=== PATIENT | male | born 1970 | race Caucasian/White ===

== ENCOUNTER 2022-06-06 09:22 | Inpatient (IN) | payer MEDICAID, SELFPAY ==
[2022-06-06] VITALS (66 sets, daily range): BP systolic 142–210; BP diastolic 90–160; PULSE 67–121; RESP 6–30; TEMP 36.6; O2SAT 91–100; BMI 25.7
--- NOTE | 2022-06-06 09:34 | ECG_ITS ---
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 Measurements Intervals [place] Rate: 91 P: 46 IN: 137 QRS: -9 QRSD: 100 T: 48 QT: 362 QTc: 446 Interpretive Statements SINUS RHYTHM SEPTAL MYOCARDIAL INFARCTION , OF INDETERMINATE AGE [40+ ms Q WAVE IN V1/V2] No previous ECG available for comparison Electronically Signed On 06-06-2022 13:06:41 CDT by Matt Valderrama M.D. [email or web address]
--- NOTE | 2022-06-06 09:34 | W.ED.NEUROSD ---
HPI - Neuro Symptoms/Deficit General: Chief Complaint: Neuro Symptoms/Deficit Stated Complaint: stroke like symptoms Time Seen by Provider: 06/06/22 09:39 History of Present Illness: 51-year-old right-handed male presents emergency room with left-sided facial droop left arm weakness and ataxia with a left arm drift. Symptoms began last night at around 10:00. No chest pain or discomfort. No previous history of CVA. No visual difficulty is having some difficulty with word finding and pronunciation. His initial NIH score is 6 he is not on any anticoagulants he is well outside the window for tPA. Onset (ago): hour(s) (11) Time: :22 Last Observed Normal: 22:00 Timing confirmed by: family member Location: speech, left face, dysarthria, left arm and ataxia Severity: moderate Quality: weak Relieving factors: none Exacerbating factors: none Associated symptoms: Deny chest pain, cough, diaphoresis, fevers/chills, headache(s), anorexia, malaise, nausea, seizures, short of breath, syncope, tingling, vertigo, vomiting or weakness Treatments Prior to Arrival: none Review of Systems Const: Denies: fever(s), chills, fatigue, malaise or diaphoresis ENMT: Denies: throat pain, ear or mastoid pain, nasal discharge or nasal congestion Card: Denies: chest pain or syncope Resp: Denies: dyspnea, productive cough or non-productive cough GI: Denies: nausea or vomiting : Denies: flank pain, dysuria, urinary frequency or urinary urgency Musc: Denies: neck pain or back pain Skin/Breast: Denies: rash or pruritus Neuro: Denies: headache(s) or vertigo PFSH ED PFSH: Medical History (Updated 06/06/22 @ 13:34 by Steve Storm DO) Depression Family History (Updated 06/06/22 @ 12:46 by Fernandez Retana MD) Other Hypertension Stroke Social History (Updated 06/06/22 @ 12:46 by Fernandez Retana MD) Smoking and tobacco status: current every day smoker Alcohol intake: never Substance/Drug Use: current Substance/Drug use type: Marijuana NIH stroke score NIHSS: Level Of Consciousness - 1a: 0 Level Of Consciousness Questions - 1b: Both Correct Level Of Consciousness Commands - 1c: Both Correct Best Gaze - 2: Normal Visual [place] - 3: No Visual Loss Facial Palsy - 4: Partial Paralysis Motor Arm Right - 5: No Drift Motor Arm Left - 5: Drift Motor Leg Right - 6: No Drift Motor Leg Left - 6: No Drift Limb Ataxia - 7: Present In One Limb Sensory - 8: Normal Best Language - 9: Mild/Moderate Aphasia Dysarthia - 10: Mild/Moderate Dysarthia Extinction And Inattention - 11: 0 Score: Total Score: 6 Course Vital Signs: Vital signs: Vital Signs Temperature 97.9 F 06/06/22 09:30 Pulse Rate 81 06/06/22 11:00 Respiratory Rate 18 06/06/22 11:00 Blood Pressure 210/140 06/06/22 10:18 Pulse Oximetry 98 06/06/22 11:15 Oxygen Delivery Me thod 06/06/22 10:15 MDM - Neuro Symptoms/Deficit Medical Decision Making Patient has symptoms of a left-sided CVA. He has a stroke score of 6 he is outside the window for any tPA treatment based on the timeframe and there is no embolism on the CTA of the head and neck. Discussed with hospitalist will admit for further evaluation and initiation of rehab and secondary prevention. Medical Records I reviewed the patient's medical records. Lab Data I reviewed the patient's lab results. 06/06/22 09:40 06/06/22 09:[address] 06/06/22 09:45 IMPRESSION: 1. No acute intracranial hemorrhage. 2. Indeterminate but suspicious for acute thrombus RIGHT M1 segment. 3. Remote tiny lacunar infarcts in the LEFT [place] radiata and RIGHT basal ganglia. 4. Increased low attenuation in the RIGHT basal ganglia is new since 2012. Could represent an area of early underlying infarct. Notified Steve Storm DO at 06/06/2022 10:14 AM. Head/Neck CTA 06/06/22 09:51 IMPRESSION: 1. Normal carotid arteries. 2. No significant stenosis. No thrombus or emboli identified within the RIGHT M1 segment. 3. Hypoplastic RIGHT A1 segment. 4. Fat-containing anterior mediastinal mass measures 7.0 x 5.5 cm. 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 This mass was also described on a prior MRI from 2010 with only minimal increase in size. At that time further evaluation with chest CT was recommended. This may have been performed at an outside imaging center. Laboratory Results WBC 4.8 10^3/uL (4.0-10.0) 06/06/22 09:40 RBC 5.37 10^6/uL (4.1-5.3) H 06/06/22 09:40 Hgb 15.6 g/dL (11.7-16.6) 06/06/22 09:40 Hct 46.6 % (42.0-52.0) 06/06/22 09:40 MCV 86.8 fl (80-94) 06/06/22 09:40 MCH 29.1 pg (28.0-34.0) 06/06/22 09:40 MCHC 33.5 g/dL (30.0-36.0) 06/06/22 09:40 RDW 13.2 % (12.1-15.1) 06/06/22 09:40 Plt Count 205 10^3/cmm (130-400) 06/06/22 09:40 MPV 10.9 fL (7.4-10.4) H 06/06/22 09:40 Neut % (Auto) 62.3 % 06/06/22 09:40 Lymph % (Auto) 25.1 % 06/06/22 09:40 [place] % (Auto) 9.3 % 06/06/22 09:40 Eos % (Auto) 2.5 % 06/06/22 09:40 Baso % (Auto) 0.6 % 06/06/22 09:40 Neut # (Auto) 3.01 10^3/uL (1.8-7.7) 06/06/22 09:40 Lymph # (Auto) 1.2 10^3/uL (0.8-4.8) 06/06/22 09:40 [place] # (Auto) 0.5 10^3/uL (0.2-0.9) 06/06/22 09:40 Eos # (Auto) 0.1 10^3/uL (0.0-0.8) 06/06/22 09:40 Baso # (Auto) 0.0 10^3/uL (0.0-0.1) 06/06/22 09:40 Nucleated RBC % (auto) 0 % 06/06/22 09:40 Nucleated RBCs # 0.0 /100WBC 06/06/22 09:40 PT 12.20 SECONDS (12.1-14.9) 06/06/22 09:40 INR 0.88 (0.8-1.2) 06/06/22 09:40 APTT 33.2 SECONDS (23.9-36.7) 06/06/22 09:40 Sodium 133 mmol/L (136-145) L 06/06/22 09:40 Potassium 3.9 mmol/L (3.5-5.1) 06/06/22 09:40 Chloride 99 mmol/L (98-107) 06/06/22 09:40 Carbon Dioxide 27 mmol/L (22-29) 06/06/22 09:40 Anion Gap 10.9 (5-19) 06/06/22 09:40 BUN 12 mg/dL (6-20) 06/06/22 09:40 Creatinine 1.0 mg/dL (0.7-1.2) 06/06/22 09:40 GFR Calculation 78.2 mL/min (90-130) L 06/06/22 09:40 Glucose 87 mg/dL (65-115) 06/06/22 09:40 Calculated Osmolality 275 mOsm/kg (285-295) L 06/06/22 09:40 Calcium 8.8 mg/dL (8.5-10.5) 06/06/22 09:40 Total Bilirubin 0.3 mg/dL (0.15-1.2) 06/06/22 09:40 AST 18 U/L (0-40) 06/06/22 09:40 ALT 14 U/L (0-41) 06/06/22 09:40 Alkaline Phosphatase 115 U/L (40-130) 06/06/22 09:40 Troponin T Gen 5 ng/L 23 ng/L (0-15) H 06/06/22 09:36 Total Protein 7.7 g/dL (6.6-8.7) 06/06/22 09:40 Albumin 4.6 g/dL (3.5-5.2) 06/06/22 09:40 Globulin 3.1 g/dL (1.3-4.6) 06/06/22 09:40 TSH 4.78 uIU/mL (0.27-4.20) H 06/06/22 09:36 Urine Color Light yellow (Yellow) 06/06/22 10:29 Urine Appearance Clear (CLEAR) 06/06/22 10:29 Urine pH 7 (5-7) 06/06/22 10:29 Ur Specific [place] 1.005 (1.005-1.030) 06/06/22 10:29 Urine Protein Neg (Negative) 06/06/22 10:29 Urine Glucose (UA) Norm (Normal) 06/06/22 10:29 Urine Ketones Negative (Negative) 06/06/22 10:29 Urine Blood Neg (Negative) 06/06/22 10:29 Urine Nitrate Negative (Negative) 06/06/22 10:29 Urine Bilirubin Neg (Negative) 06/06/22 10:29 Urine Urobilinogen Neg mg/dL (Negative) 06/06/22 10:29 Ur Leukocyte Esterase Negative (Negative) 06/06/22 10:29 Urine Opiates Screen Negative ng/mL (Negative) 06/06/22 10:29 Ur Barbiturates Screen Negative ng/mL (Negative) 06/06/22 10:29 Ur Phencyclidine Scrn Negative ng/mL (Negative) 06/06/22 10:29 Ur Amphetamines Screen Negative ng/mL (Negative) 06/06/22 10:29 U Benzodiazepines Scrn Negative ng/mL (Negative) 06/06/22 10:29 Urine Cocaine Screen Negative ng/mL (Negative) 06/06/22 10:29 U Marijuana (THC) Screen Positive ng/mL (Negative) H 06/06/22 10:29 Discharge Plan Discharge Patient Disposition: Admitted As Inpatient Admit Provider: Fernandez Retana Clinical Impression: Acute CVA (cerebrovascular accident), HTN (hypertension) Condition: Stable Coding Level of Care Code ED Affiliate Marketing Manager for Mayte Lima
--- NOTE | 2022-06-06 09:45 | CT_ITS ---
WS: [id number] CT HEAD NONCONTRAST HISTORY: Symptoms of acute stroke, LEFT facial droop TECHNIQUE: Contiguous axial imaging performed through the brain in 2.5 mm imaging. Bone and soft tiss ue windows. Sagittal and coronal reformats reviewed. All CT scans at [facility] use at least one of these dose optimization techniques: automated exposure control; mA and/or kV adjustment per pa tient size (includes targeted exams where dose is matched to clinical indication); or iterative recon struction. DLP: 1124.34 mGy-cm. COMPARISON: 12/21/2012 No acute intracranial hemorrhage, midline shift or mass effect. No significant atrophy. Small vessel ischemic disease. Prior lacunar infarct LEFT [place] radiata. Tin y lacunar infarct in the RIGHT basal ganglia. Increased amount of low attenuation in the RIGHT basal ganglia could represent a subacute infarct. This is new since the prior study. Ventricles: Normal size with no hydrocephalus. Barium slight increased density in the RIGHT M1 segment. This is asymmetric to the LEFT MCA. Paranasal sinuses: As visualized are clear. Mastoid air cells: Well pneumatized. Calvarium and scalp: Skull is intact with no soft tissue edema or swelling. CT/CT head thrombolytic 78585 IMPRESSION: 1. No acute intracranial hemorrhage. 2. Indeterminate but suspicious for acute thrombus RIGHT M1 segment. 3. Remote tiny lacunar infarcts in the LEFT [place] radiata and RIGHT basal johann glia. 4. Increased low attenuation in the RIGHT basal ganglia is new since 2012. Cou ld represent an area of early underlying infarct. Notified Steve Storm DO at 06/06/2022 10:14 AM.
--- NOTE | 2022-06-06 09:47 | ED_ITS ---
HPI - Neuro Symptoms/Deficit General: Chief Complaint: Neuro Symptoms/Deficit Stated Complaint: stroke like symptoms Time Seen by Provider: 06/06/22 09:39 Source: patient and family Mode of arrival: ambulatory History of Present Illness: 51-year-old male presents emergency room states he went to bed last around 10:00 shortly after that began having some left-sided weakness and numbness. No history of stroke he is not on any anticoagulants. On presentation here he has left-sided facial paralysis weakness and ataxia of the left arm some difficulty with speech finding and fusion. No chest pain or shortness of breath. Onset (ago): hour(s) (11) Time: 09:22 Last Observed Normal: 10:00 Timing confirmed by: family member Location: left face and left arm History of same: No Severity: moderate Quality: weak Relieving factors: none Exacerbating factors: none On Anticoagulants: No Associated symptoms: Reports weakness; Deny chest pain, cough, diaphoresis, fevers/chills, headache(s), anorexia, malaise, nausea, seizures, short of breath, syncope, tingling, vertigo or vomiting Treatments Prior to Arrival: none Review of Systems Const: Denies: fever(s), chills, malaise or diaphoresis ENMT: Denies: throat pain, ear or mastoid pain, nasal discharge or nasal con gestion Card: Denies: chest pain or syncope Resp: Denies: dyspnea, productive cough or non-productive cough GI: Denies: abdominal pain, nausea or vomiting : Denies: flank pain, dysuria, urinary frequency or urinary urgency Musc: Denies: neck pain or back pain Skin/Breast: Denies: rash or pruritus Neuro: Denies: headache(s) or vertigo PFSH ED 2 PFSH: Medical History (Updated 06/06/22 @ 13:56 by Fernandez Retana MD) Depression Family History (Updated 06/06/22 @ 12:46 by Fernandez Retana MD) Other Hypertension Stroke Social History (Updated 06/06/22 @ 12:46 by Fernandez Retana MD) Smoking and tobacco status: current every day smoker Alcohol intake: never Substance/Drug Use: current Substance/Drug use type: Marijuana NIH stroke score NIHSS: Level Of Consciousness - 1a: 0 Level Of Consciousness Questions - 1b: Both Correct Level Of Consciousness Commands - 1c: Both Correct Best Gaze - 2: Normal Visual Castellon - 3: No Visual Loss Facial Palsy - 4: Partial Paralysis Motor Arm Right - 5: No Drift Motor Arm Left - 5: Drift Motor Leg Right - 6: No Drift Motor Leg Left - 6: No Drift Limb Ataxia - 7: Present In One Limb Sensory - 8: Normal Best Language - 9: Mild/Moderate Aphasia Dysarthia - 10: Mild/Moderate Dysarthia Extinction And Inattention - 11: 0 Score: Total Score: 6 Physical Exam Const: GENERAL APPEARANCE: cooperative and comfortable ORIENTATION/CONSCIOUSNESS: Yes awake, Yes oriented to person, Yes oriented to place and Yes oriented to time HENMT: COMMON NORMALS: normocephalic, atraumatic and hearing grossly normal bilaterally HEAD & SCALP: normocephalic and atraumatic Resp: COMMON NORMALS: normal respiratory effort, No retractions, No use of accessory muscles and clear to auscultation bilaterally AUSCULTATION: clear to auscultation bilaterally Cardio: COMMON NORMALS: regular rate, regular rhythm and No murmurs present (Cardio) RATE: regular rate RHYTHM: regular rhythm GI: COMMON NORMALS: Soft to palpation and No hepatosplenomegaly present AUSCULTATION: Yes normoactive bowel sounds PALPATION: Yes Soft to palpation, No Tenderness to palpation present (GI), No Guarding due to palpation present (GI) and Yes No hepatosplenomegaly present Extremity: COMMON NORMALS: normal to inspection, capillary refill normal, no clubbing, cyanosis or edema, no calf tenderness and no pedal edema Neuro: SENSORIUM/ORIENTATION: Yes oriented to person, Yes oriented to place and Yes oriented to time Skin: COMMON NORMALS: no rashes or lesions noted GENERAL SKIN EXAM: no rashes or lesions noted Course Vital Signs: Vital signs: Vital Signs Temperature 97.9 F 06/06/22 09:30 Pulse Rate 74 06/06/22 13:45 Respiratory Rate 6 L 06/06/22 13:45 Blood Pressure 208/160 06/06/22 13:57 Pulse Oximetry 99 06/06/22 13:45 Oxygen Delivery Me thod 06/06/22 13:40 MDM - Neuro Symptoms/Deficit Medical Decision Making Patient presents with left-sided weakness is a stroke score of 6 with dysarthria aphasia numbness tingling and weakness in the left side as well as left-sided facial paralysis. CTA of the head and neck does not show any acute embolism. He is outside the window for tPA does not qualify for an embolectomy discussed the hospitalist and with the neurologist will admit orders are written. Given labetalol for blood pressure. Medical Records I reviewed the patient's medical records. Lab Data I reviewed the patient's lab results. 06/06/22 09:40 06/06/22 09:[address] 06/06/22 09:45 IMPRESSION: 1. No acute intracranial hemorrhage. 2. Indeterminate but suspicious for acute thrombus RIGHT M1 segment. 3. Remote tiny lacunar infarcts in the LEFT [place] radiata and RIGHT basal ganglia. 4. Increased low attenuation in the RIGHT basal ganglia is new since 2012. Could represent an area of early underlying infarct. Notified Steve Storm DO at 06/06/2022 10:14 AM. Head/Neck CTA 06/06/22 09:51 IMPRESSION: 1. Normal carotid arteries. 2. No significant stenosis. No thrombus or emboli identified within the RIGHT M1 segment. 3. Hypoplastic RIGHT A1 segment. 4. Fat-containing anterior mediastinal mass measures 7.0 x 5.5 cm. 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 This mass was also described on a prior MRI from 2010 with only minimal increase in size. At that time further evaluation with chest CT was recommended. This may have been performed at an outside imaging center. Laboratory Results WBC 4.8 10^3/uL (4.0-10.0) 06/06/22 09:40 RBC 5.37 10^6/uL (4.1-5.3) H 06/06/22 09:40 Hgb 15.6 g/dL (11.7-16.6) 06/06/22 09:40 Hct 46.6 % (42.0-52.0) 06/06/22 09:40 MCV 86.8 fl (80-94) 06/06/22 09:40 MCH 29.1 pg (28.0-34.0) 06/06/22 09:40 MCHC 33.5 g/dL (30.0-36.0) 06/06/22 09:40 RDW 13.2 % (12.1-15.1) 06/06/22 09:40 Plt Count 205 10^3/cmm (130-400) 06/06/22 09:40 MPV 10.9 fL (7.4-10.4) H 06/06/22 09:40 Neut % (Auto) 62.3 % 06/06/22 09:40 Lymph % (Auto) 25.1 % 06/06/22 09:40 [place] % (Auto) 9.3 % 06/06/22 09:40 Eos % (Auto) 2.5 % 06/06/22 09:40 Baso % (Auto) 0.6 % 06/06/22 09:40 Neut # (Auto) 3.01 10^3/uL (1.8-7.7) 06/06/22 09:40 Lymph # (Auto) 1.2 10^3/uL (0.8-4.8) 06/06/22 09:40 [place] # (Auto) 0.5 10^3/uL (0.2-0.9) 06/06/22 09:40 Eos # (Auto) 0.1 10^3/uL (0.0-0.8) 06/06/22 09:40 Baso # (Auto) 0.0 10^3/uL (0.0-0.1) 06/06/22 09:40 Nucleated RBC % (auto) 0 % 06/06/22 09:40 Nucleated RBCs # 0.0 /100WBC 06/06/22 09:40 PT 12.20 SECONDS (12.1-14.9) 06/06/22 09:40 INR 0.88 (0.8-1.2) 06/06/22 09:40 APTT 33.2 SECONDS (23.9-36.7) 06/06/22 09:40 Sodium 133 mmol/L (136-145) L 06/06/22 09:40 Potassium 3.9 mmol/L (3.5-5.1) 06/06/22 09:40 Chloride 99 mmol/L (98-107) 06/06/22 09:40 Carbon Dioxide 27 mmol/L (22-29) 06/06/22 09:40 Anion Gap 10.9 (5-19) 06/06/22 09:40 BUN 12 mg/dL (6-20) 06/06/22 09:40 Creatinine 1.0 mg/dL (0.7-1.2) 06/06/22 09:40 GFR Calculation 78.2 mL/min (90-130) L 06/06/22 09:40 Glucose 87 mg/dL (65-115) 06/06/22 09:40 Calculated Osmolality 275 mOsm/kg (285-295) L 06/06/22 09:40 Calcium 8.8 mg/dL (8.5-10.5) 06/06/22 09:40 Total Bilirubin 0.3 mg/dL (0.15-1.2) 06/06/22 09:40 AST 18 U/L (0-40) 06/06/22 09:40 ALT 14 U/L (0-41) 06/06/22 09:40 Alkaline Phosphatase 115 U/L (40-130) 06/06/22 09:40 Troponin T Gen 5 ng/L 23 ng/L (0-15) H 06/06/22 09:36 Total Protein 7.7 g/dL (6.6-8.7) 06/06/22 09:40 Albumin 4.6 g/dL (3.5-5.2) 06/06/22 09:40 Globulin 3.1 g/dL (1.3-4.6) 06/06/22 09:40 TSH 4.78 uIU/mL (0.27-4.20) H 06/06/22 09:36 Urine Color Light yellow (Yellow) 06/06/22 10:29 Urine Appearance Clear (CLEAR) 06/06/22 10:29 Urine pH 7 (5-7) 06/06/22 10:29 Ur Specific [place] 1.005 (1.005-1.030) 06/06/22 10:29 Urine Protein Neg (Negative) 06/06/22 10:29 Urine Glucose (UA) Norm (Normal) 06/06/22 10:29 Urine Ketones Negative (Negative) 06/06/22 10:29 Urine Blood Neg (Negative) 06/06/22 10:29 Urine Nitrate Negative (Negative) 06/06/22 10:29 Urine Bilirubin Neg (Negative) 06/06/22 10:29 Urine Urobilinogen Neg mg/dL (Negative) 06/06/22 10:29 Ur Leukocyte Esterase Negative (Negative) 06/06/22 10:29 Urine Opiates Screen Negative ng/mL (Negative) 06/06/22 10:29 Ur Barbiturates Screen Negative ng/mL (Negative) 06/06/22 10:29 Ur Phencyclidine Scrn Negative ng/mL (Negative) 06/06/22 10:29 Ur Amphetamines Screen Negative ng/mL (Negative) 06/06/22 10:29 U Benzodiazepines Scrn Negative ng/mL (Negative) 06/06/22 10:29 Urine Cocaine Screen Negative ng/mL (Negative) 06/06/22 10:29 U Marijuana (THC) Screen Positive ng/mL (Negative) H 06/06/22 10:29 Discharge Plan Discharge Patient Disposition: Admitted As Inpatient Admit Provider: Fernandez Retana Clinical Impression: Acute CVA (cerebrovascular accident), HTN (hypertension) Condition: Stable Coding Level of Care Code ED Education Rn for Mayte Lima
--- NOTE | 2022-06-06 09:51 | CT_ITS ---
WS: [id number] CT ANGIOGRAM CEREBRAL AND CAROTID ARTERIES HISTORY: acute CVA TECHNIQUE: CT angiogram is performed of the carotid and cerebral arteries. During arterial injection imaging is obtained from the skull vertex to the aortic arch in 1.25 mm imaging. Coronal and sagittal reformats are submitted. Additional multi planar reformats of the carotid and cerebral arteries are submitted, MIP imaging also reviewed. NASCET criteria utilized. All CT scans at [facility] e at least one of these dose optimization techniques: automated exposure control; mA and/or kV adjust ment per patient size (includes targeted exams where dose is matched to clinical indication); or iter ative reconstruction. CONTRAST: Omnipaque 350; 100 mL IV. DLP: 556.54 mGy.cm COMPARISON: None available. Carotid Angiogram: Right carotid: Common carotid artery: Arises normally from the innominate artery. No significant plaque or stenosis. Internal carotid artery: No plaque or stenosis. External carotid artery: Patent. Left carotid: Common carotid artery: Arises normally from the aorta. No significant plaque or stenosis. Internal carotid artery: No plaque or stenosis. External carotid artery: Patent. Right vertebral artery: Unremarkable. Left vertebral artery: Unremarkable. Arises normally from the subclavian artery. Subclavian arteries: No stenosis or significant abnormality. Upper thorax: There is a large anterior mediastinal mass containing peripheral calcification versus l obulated enhancement. Mass measures 7.0 x 5.5 cm causing very slight mass effect on the LEFT subclavi an vein. Mass abuts but does not displace the aortic arch. Thyroid gland: Subcentimeter RIGHT thyroid nodule. Osseous structures: Mild cervical spondylosis. CEREBRAL ANGIOGRAM: Intracranial vertebral arteries: Normal with no significant atherosclerosis. Basilar artery: No significant stenosis or occlusion. No aneurysm. Intracranial Internal carotid arteries: Demonstrates no significant stenosis or plaque. Middle cerebral arteries: No filling defects are noted within the RIGHT M1 segment. Anterior cerebral arteries and ACOM: Very small hypoplastic RIGHT A1 segment. Posterior cerebral arteries and PCOM's: Normal. Small caliber LEFT transverse sinus with arachnoid granulation. Mastoid air cells: Normal. Paranasal sinuses: Normal. Calvarium: Normal. CT/CT angio headneck* [id number] IMPRESSION: 1. Normal carotid arteries. 2. No significant stenosis. No thrombus or emboli identified within the RIGHT M1 segment. 3. Hypoplastic RIGHT A1 segment. 4. Fat-containing anterior mediastinal mass measures 7.0 x 5.5 cm. Most consis tent with a germ cell tumor/teratoma. This mass was also described on a prior M RI from 2010 with only minimal increase in size. At that time further evaluatio n with chest CT was recommended. This may have been performed at an outside [facility] center.
[2022-06-06 09:59] LABS: Basophils % 0.6 %; Eosinophils # 0.1 10^3/uL (0.0-0.8); Eosinophils % 2.5 %; Hematocrit 46.6 % (42.0-52.0); Hemoglobin 15.6 g/dL (11.7-16.6); Lymphocytes # 1.2 10^3/uL (0.8-4.8); Lymphocytes % 25.1 %; Mean Corpuscular HGB Conc 33.5 g/dL (30.0-36.0); Mean Corpuscular Hemoglobin 29.1 pg (28.0-34.0); Mean Corpuscular Volume 86.8 fl (80-94); Mean Platelet Volume 10.9 fL (7.4-10.4); Monocytes # 0.5 10^3/uL (0.2-0.9); Monocytes % 9.3 %; Neutrophils # 3.01 10^3/uL (1.8-7.7); Neutrophils % 62.3 %; Nucleated Red Blood Cells % 0 %; Platelet Count 205 10^3/cmm (130-400); Red Blood Count 5.37 10^6/uL (4.1-5.3); Red Cell Distribution Width 13.2 % (12.1-15.1); White Blood Count 4.8 10^3/uL (4.0-10.0)
[2022-06-06] MEDS: iohexol 350 mg/mL 500 mL Btl (per mL) IV (10:05)
[2022-06-06 10:14] LABS: INR 0.88 (0.8-1.2)
[2022-06-06 10:15] LABS: Alanine Aminotransferase 14 U/L (0-41); Albumin Level 4.6 g/dL (3.5-5.2); Alkaline Phosphatase 115 U/L (40-130); Anion Gap 10.9 (5-19); Aspartate Amino Transferase 18 U/L (0-40); Blood Urea Nitrogen 12 mg/dL (6-20); Calcium 8.8 mg/dL (8.5-10.5); Carbon Dioxide 27 mmol/L (22-29); Chloride 99 mmol/L (98-107); Globulin 3.1 g/dL (1.3-4.6); Glomerular Filtration Rate 78.2 mL/min (90-130); Glucose 87 mg/dL (65-115); Osmolality Calculated 275 mOsm/kg (285-295); Partial Thromboplastin Time 33.2 SECONDS (23.9-36.7); Potassium 3.9 mmol/L (3.5-5.1); Sodium 133 mmol/L (136-145); Total Bilirubin 0.3 mg/dL (0.15-1.2); Total Protein 7.7 g/dL (6.6-8.7)
[2022-06-06 10:32] LABS: Add Urine Microscopic? NO; Charge for UA Resulting for Rev
[2022-06-06 10:53] LABS: Bilirubin Urine Neg (Negative); Blood Urine Neg (Negative); Glucose Urine UA Norm (Normal); Ketones Urine Negative (Negative); Leukocyte Esterase Urine Negative (Negative); Nitrate Urine Negative (Negative); Protein Urine Neg (Negative); Specific Gravity, Urine 1.005 (1.005-1.030); Urine Appearance Clear (CLEAR); Urine Color Light yellow (Yellow); Urobilinogen Urine Neg (Negative); pH Urine 7 (5-7)
[2022-06-06 11:01] LABS: Amphetamines Screen Urine Negative (Negative); Barbiturates Screen Urine Negative (Negative); Benzodiazepines Screen Urine Negative (Negative); Cocaine Screen Urine Negative (Negative); Opiate Screen Urine Negative (Negative); PCP Screen Urine Negative (Negative); THC Screen Urine Positive (Negative)
[2022-06-06] MEDS: labetalol 5 mg/mL SDV 20mL 10 MG IVP (11:12)
--- NOTE | 2022-06-06 11:50 | PM.HP ---
Providers/Chief Complaint Admitting Physician: Fernandez Retana MD Chief Complaint: stroke like symptoms History of Present Illness Vik Jones is a 51 year old male with no prior history of CVA who was brought into the emergency department with left-sided weakness and left facial droop. He reports he was normal around 10 PM last night when he tried to go to sleep. He got up around 2 or 230, and deficit was noted at that time. He denied any headache. He has had some difficulty with ambulation secondary to weakness. He feels like he has some impairment in swallowing. He has never had symptoms like this before. He states he gets nervous/anxious fairly easily and has to move quite a bit. He feels like he has had some shortness of breath, chest heaviness lately that he attributes to allergies. He denies any nausea, vomiting. No recent fever. Reports he smokes a tremendous amount. He would like a nicotine patch. Stroke scale of 6 in the emergency department. While awaiting a room on second floor with telemetry, a short nonsustained run of ventricular tachycardia was noted. I have ordered a magnesium level. I rechecked to make sure his potassium level was normal on admission which it was. Await echocardiogram. Start low-dose beta-catia. Admission deferred to second cardiac stepdown. Review of Systems General: Reports: 10 or more systems reviewed and unremarkable except in HPI and below Const: Denies: fever(s), chills, fatigue or malaise ENMT: Denies: throat pain Card: Denies: chest pain Resp: Reports: dyspnea; Denies: productive cough or non-productive cough Neuro: Reports: numbness in extremities, weakness in extremities and difficulty walking Psych: Reports: depression Medications/Allergies Home Medications Medication Instructions Recorded Confirmed Last Taken Type No Known Home Medications 06/06/22 06/06/22 Unknown History PFSH Acute PFSH: Medical History (Updated 06/06/22 @ 13:56 by Fernandez Retana MD) Depression Family History (Updated 06/06/22 @ 12:46 by Fernandez Retana MD) Other Hypertension Stroke Social History (Updated 06/06/22 @ 12:46 by Fernandez Retana MD) Smoking and tobacco status: current every day smoker Alcohol intake: never Substance/Drug Use: current Substance/Drug use type: Marijuana Vitals/I&O/Wt Last Vital Signs Temp 97.9 F 06/06/22 09:30 Pulse 81 06/06/22 11:00 Resp 18 06/06/22 11:00 BP 210/140 06/06/22 10:18 Pulse Ox 98 06/06/22 11:15 O2 Del Method 06/06/22 10:15 Weight last 48 hrs Weight 90.718 kg Physical Exam Narrative: General exam is a white male, somewhat nervous appearing, in no distress HEENT: Atraumatic and normocephalic. Pupils equally round. Oropharynx clear Neck is supple no lymphadenopathy thyromegaly Cardiovascular regular rate and rhythm without murmur Lungs clear no wheezing or crackles Abdomen is soft nontender positive bowel sounds exam is deferred Extremities no cyanosis clubbing or edema, cap refill brisk Skin no rash Neuro: Left facial droop, left hemiparesis noted. I agree with NIH stroke scale of 6 as per emergency department documentation. Data 06/06/22 09:40 06/06/22 09:40 Other Labs: EKG demonstrates normal sinus rhythm, borderline left axis deviation, Q waves in V1 and V2 CT head no acute changes CTA head and neck no thrombus, hypoplastic right A1 segment Fat-containing anterior mediastinal mass 7 x 5.5 most consistent with germ cell tumor/teratoma which was noted on prior MRI 2010 and only slight increase in size since that time. PT and PTT are normal Urinalysis negative Urine drug screen positive for marijuana TSH 4.78 Troponin 23 LFTs normal A&P Assessment and plan (1) Acute CVA (cerebrovascular accident): Patient presents with acute CVA Aspirin was ordered by me in the emergency department. Initiate Plavix 75 mg a day and aspirin 81 mg daily. Initiate statin Lipid profile in the morning Telemetry Therapy consultations Diet after bedside swallow or speech therapy evaluation Counseled on stopping smoking TSH was ordered and checked, not significantly elevated CTA of head and neck is already been performed. Check echocardiogram. Permissive hypertension. Will not treat blood pressure aggressively unless over 220/120. After 24 hours, may initiate start of below blood pressure monitoring (2) HTN (hypertension): See above (3) Anxiety: Ativan x1 given in the emergency department (4) Chest pain: Troponins have been ordered. There is slight elevation consistent with type II elevation. Continue monitoring on telemetry Await echocardiogram (5) Non-sustained ventricular tachycardia: Await echocardiogram Stat magnesium level is pending Potassium checked and normal Initiate low-dose beta-catia to reduce irritability, 12.5 mg twice daily (6) Mediastinal mass: Incidental finding Noted to be present since 2010, with slight growth Could be playing a part in patient's described shortness of breath with laying down. Tomorrow plan on CT chest with contrast for further evaluation of mass May need biopsy, further evaluation as outpatient LDH, alpha-fetoprotein, beta-hCG ordered. Plan Tobacco dependency. Nicotine patch will be initiated history of chronic back pain Full code currently SCDs, Lovenox for DVT prophylaxis Attestations Medical Necessity Statement*: Will require greater than 2 midnight stay for evaluation and treatment of CVA Diagnoses Acute CVA (cerebrovascular accident) I63.9 HTN (hypertension) I10 Anxiety F41.9 Chest pain R07.9 Non-sustained ventricular tachycardia I47.29 Mediastinal mass J98.59 Time Spent (min) 57
[2022-06-06] MEDS: LORazepam 2 mg/mL INJ 1 mL 1 MG IVP (11:56)
[2022-06-06] MEDS: aspirin 81 mg Chew Tablet 324 MG PO (11:56)
[2022-06-06 12:29] LABS: Troponin T (5th) Once 23 ng/L (0-15)
[2022-06-06 12:39] LABS: Thyroid Stimulating Hormone 4.78 uIU/mL (0.27-4.20)
--- NOTE | 2022-06-06 13:24 | ECG_ITS ---
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 Measurements Intervals [place] Rate: 79 P: 30 DC: 139 QRS: -25 QRSD: 103 T: 33 QT: 391 QTc: 450 Interpretive Statements SINUS RHYTHM INCOMPLETE RIGHT BUNDLE BRANCH BLOCK [90+ ms QRS DURATION, TERMINAL R IN V1/V2, 40+ ms S IN I/aVL/V4/V5/V6] SEPTAL MYOCARDIAL INFARCTION , OF INDETERMINATE AGE [40+ ms Q WAVE IN V1/V2] Compared to ECG 06/06/2022 09:36:13 Incomplete right bundle-branch block now present Myocardial infarct finding still present Electronically Signed On 06-07-2022 11:56:55 CDT by Matt Valderrama M.D. [email or web address]
[2022-06-06 13:51] LABS: Troponin T (5th) Once 24 ng/L (0-15)
[2022-06-06] MEDS: hyDRALAzine 20 mg/mL INJ 1 mL 10 MG IVP (13:51)
[2022-06-06 13:58] LABS: HCG Tumor Marker 1 mIU/mL (0-3); Tumor Marker Alpha Fetoprotein 2.3 ng/mL (0-8.3)
[2022-06-06 14:09] LABS: Lactate Dehydrogenase 214 U/L (135-225)
--- NOTE | 2022-06-06 14:39 | USCV_ITS ---
Vik Jones Age: 51 Gender: M : 1970 Exam Date: 06/06/2022 15:04 Ordering Phys: Fernandez Retana MD Technologist: Mitch Montague Exam Location: [facility] Indication: cva BP: 178 / 139 HR: 79 Rhythm: Sinus Technical Quality: Adequate MEASUREMENTS (Male / Female) Normal Values 2D ECHO LV Diastolic Diameter PLAX 5.9 cm 4.2 - 5.9 / 3.9 - 5.3 cm LV Systolic Diameter PLAX 5.1 cm IVS Diastolic Thickness 1.0 cm 0.6 - 1.0 / 0.6 - 0.9 cm IVS Systolic Thickness 1.5 cm LVPW Diastolic Thickness 1.2 cm 0.6 - 1.0 / 0.6 - 0.9 cm LVPW Systolic Thickness 1.7 cm LVOT Diameter 2.0 cm LV Ejection Fraction 2D Teich 26.4 % LV Ejection Fraction MOD 2C 46.7 % LV Ejection Fraction 2C AL 49.2 % LA Diameter 3.9 cm Aorta at Sinotubular Diameter 3.0 cm IVC Diameter 1.7 cm M-MODE Aortic Annulus Diameter 4.4 cm LA Ao Ratio MM 1.0 MV E Point Septal Separation 2.7 cm DOPPLER AV Peak Velocity 150.0 cm/s LVOT Peak Velocity 59.0 cm/s AV Area Cont Eq vti 1.6 cm squared AV Area Cont Eq pk 1.3 cm squared MV Area PHT 5.0 cm squared Mitral E to A Ratio 0.8 MV E' Velocity 40.5 cm/s Mitral E to MV E' Ratio 10.0 Mitral E to LV E' Lateral Ratio 7.7 Mitral E to LV E' Septal Ratio 14.4 TR Peak Velocity 111.3 cm/s TR Peak Gradient 5.0 mmHg TV Peak E Velocity 78.0 cm/s Right Atrial Pressure 3.0 mmHg Pulmonary Artery Systolic Pressu 8.0 mmHg RV Acceleration Time 0.1 s FINDINGS Left Ventricle Left ventricle is mildly dilated. LV systolic function is moderately reduced with EF of 35-40%. Moderate global hypokinesis. Grade 1 diastolic dysfunction Right Ventricle Normal in size and function Right Atrium Normal in size Left Atrium Normal in size Mitral Valve Thickened mitral valve. No significant regurgitation Aortic Valve Aortic valve is thickened. No significant stenosis or regurgitation Tricuspid Valve Mild tricuspid regurgitation. Insufficient TR jet to calculate RVSP Pulmonic Valve Not well visualized Pericardium Grossly normal Aorta Normal in size IVC Appears to be normal CONCLUSIONS LV systolic function is moderately reduced with EF of 35-40% Grade 1 diastolic dysfunction No significant valvular heart disease No comparison studies are available Matt Valderrama MD (Electronically Signed) Final Date: 07 June 2022 09:20 S
--- NOTE | 2022-06-06 14:53 | CTR_ITS ---
PROCEDURE INFORMATION: Exam: CTA Chest With Contrast Exam date and time: 06/06/2022 4:49 PM Age: 51 years old Clinical indication: Dyspnea; Additional info: Dyspnea, mediastinal mass TECHNIQUE: Imaging protocol: Computed tomographic angiography of the chest with contrast. 3D rendering (Not supervised by radiologist): MIP and/or 3D reconstructed images were created by the technologist. Radiation optimization: All CT scans at this facility use at least one of these dose optimization techniques: automated exposure control; mA and/or kV adjustment per patient size (includes targeted exams where dose is matched to clinical indication); or iterative reconstruction. Contrast material: OMNI; Contrast volume: 100 ml; Contrast route: INTRAVENOUS (IV); REPORTING DATA: Count of CT and Cardiac NM exams in prior 12 months: This patient has received 2 known CTs and 0 known cardiac nuclear medicine studies in the 12 months prior to the current study. COMPARISON: CT angio headneck* [id number] 06/06/2022 9:58 AM RADIATION DOSE METRICS: Total DLP (mGy-cm): 454.07 FINDINGS: Pulmonary arteries: Pulmonary arteries are normal in size. No filling defects are demonstrated. No evidence of pulmonary embolism. Aorta: The ascending aorta measures 3.8 cm in diameter. No aortic dissection. Thyroid: There is an 8 mm low-density nodule noted in the right lobe of the thyroid gland. No follow-up recommended. Lungs: Mild centrilobular emphysema noted. Areas of ground-glass attenuation noted bilaterally. No consolidative infiltrates. Pleural spaces: No pleural effusion or pneumothorax noted. Heart: Mild cardiomegaly is noted. There is no significant pericardial effusion present. Coronary arteries: Minimal coronary arterial calcifications are noted. Mediastinal space: There is a well-circumscribed anterior mediastinal mass present. The mass measures 6 x 7 x 6 cm. The mass demonstrates a thin soft tissue rim with calcification. The central portion of the mass demonstrates areas of fat density and fluid density. The appearance suggests mediastinal teratoma. Lymph nodes: Mild nonspecific bilateral hilar adenopathy noted. Hilar nodes measure up to 1.6 cm in length. Bones/joints: Degenerative thoracic spine changes are noted. No acute osseous abnormality. Soft tissues: The soft tissues are unremarkable as demonstrated. CT/CT angio chest PE protcl [id number] IMPRESSION: 1. There is a well-circumscribed anterior mediastinal mass present. The mass measures 6 x 7 x 6 cm. 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 Consider surgical consultation. 2. No evidence of pulmonary embolism. 3. Mild cardiomegaly is noted. 4. Areas of ground-glass attenuation noted bilaterally. No consolidative infiltrates. Mild centrilobular emphysema is present. 5. Incidental note made of mild nonspecific bilateral hilar adenopathy. COMMENTS: 1. Consistent with the [employer]'s Incidental Findings Committee white paper (J Am Nikolas Radiol 2015): In patients aged 35 years and older with an incidental thyroid nodule equal to or greater than 1.[address], MRI or extrathyroidal US, further evaluation with dedicated thyroid US is recommended for patients with normal life expectancy and without comorbidities. For smaller nodules without suspicious features, no further evaluation or follow up is recommended. 2. In the absence of a history or active diagnosis of lung cancer, it is recommended that this patient with emphysema be evaluated for enrollment in a low dose CT lung cancer screening program.
[2022-06-06] MEDS: nicotine 21 mg Patch 1 PATCH TRANSDERMA (15:05)
[2022-06-06] MEDS: enoxaparin 40 mg/0.4 mL Syringe SUBCUT (15:06)
--- NOTE | 2022-06-06 16:41 | PC.NURSE ---
off unit to CT with RN. [id number]
--- NOTE | 2022-06-06 17:08 | PC.NURSE ---
back in room. [id number]
[2022-06-06] MEDS: metoprolol tartrate 25 mg Tablet 12.5 MG PO (21:09)
[2022-06-06] MEDS: atorvastatin 40 mg Tablet PO (21:09)
[2022-06-07 03:49] VITALS: BP 172/118; PULSE 89; RESP 24; O2SAT 97
[2022-06-07 04:16] LABS: Basophils % 0.3 %; Eosinophils # 0.1 10^3/uL (0.0-0.8); Eosinophils % 0.9 %; Hematocrit 47.4 % (42.0-52.0); Hemoglobin 16.1 g/dL (11.7-16.6); Mean Corpuscular Hemoglobin 28.9 pg (28.0-34.0); Mean Corpuscular Volume 84.9 fl (80-94); Mean Platelet Volume 10.5 fL (7.4-10.4); Monocytes # 0.5 10^3/uL (0.2-0.9); Monocytes % 7.6 %; Neutrophils # 5.28 10^3/uL (1.8-7.7); Neutrophils % 76.9 %; Nucleated Red Blood Cells % 0 %; Platelet Count 219 10^3/cmm (130-400); Red Blood Count 5.58 10^6/uL (4.1-5.3); Red Cell Distribution Width 13.1 % (12.1-15.1); White Blood Count 6.9 10^3/uL (4.0-10.0)
[2022-06-07 04:29] LABS: Estmated Average Glucose 103; Hemoglobin A1C 5.2 % (4.0-6.0)
[2022-06-07 04:34] LABS: Anion Gap 15.8 (5-19); Blood Urea Nitrogen 9 mg/dL (6-20); Calcium 9.2 mg/dL (8.5-10.5); Carbon Dioxide 23 mmol/L (22-29); Chloride 101 mmol/L (98-107); Glomerular Filtration Rate 88.3 mL/min (90-130); Glucose 104 mg/dL (65-115); Osmolality Calculated 281 mOsm/kg (285-295); Potassium 3.8 mmol/L (3.5-5.1); Sodium 136 mmol/L (136-145)
[2022-06-07 04:40] LABS: Chol HDL Ratio 5.26 mg/dL (1.0-5.00); Cholesterol 179 mg/dL (0-200); HDL Cholesterol 34 mg/dL (60-100); LDL Cholesterol Calculated 109 mg/dL (50-129); LDL HDL Ratio 3.21 RATIO (0.00-3.22); Triglycerides 181 mg/dL (0-150)
--- NOTE | 2022-06-07 05:27 | PC.NURSE ---
0330 Pt states he is done wearing monitor leads and pulse ox. He says hes tired of them and wont wear them any longer. Pt agreed to allow Q4H vital checks.
--- NOTE | 2022-06-07 09:20 | P.PN_ITS ---
Subjective Subjective: No issues overnight other than unable to sleep. Does not feel short of breath this morning. Feels like his weakness on his left side is improved. Able to ambulate with minimal difficulty. Medications: Reviewed: Yes Vitals/I&O/Wt Last Vital Signs Temp 98 F 06/06/22 23:04 Pulse 89 06/07/22 03:49 Resp 24 H 06/07/22 03:49 BP 172/118 06/07/22 03:49 Pulse Ox 97 06/07/22 03:49 O2 Del Method 06/06/22 16:36 06/06/22 06/07/22 06/07/22 22:59 06:59 14:59 Intake Total 480 / 480 Output Total 1800 / 1800 Balance -1800 / -1800 480 / 480 Weight last 48 hrs Weight 90.718 kg Physical Exam Narrative: General exam is a white male, no distress Neck is supple no lymphadenopathy thyromegaly Cardiovascular regular rate and rhythm without murmur Lungs clear no wheezing or crackles Abdomen is soft nontender positive bowel sounds exam demonstrates normal male. No evidence of testicular mass. No hernia. Extremities no cyanosis clubbing or edema, cap refill brisk Skin no rash Neuro: Left facial droop, left hemiparesis noted. Left facial droop is significantly improved as is strength on the left side. Weakness still is present, upper extremity greater than lower extremity. Data 06/07/22 03:44 06/07/22 03:44 Other Labs: CTA of chest was reviewed with the patient. 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 Telemetry patient has only worn part of the night. This demonstrated no significant other arrhythmias. A&P Assessment and plan (1) Acute CVA (cerebrovascular accident): Patient presents with acute CVA Continue Plavix and aspirin Continue statin Encouraged telemetry Appreciate therapy consultations Counseled on stopping smoking TSH was ordered and checked, not significantly elevated CTA of head and neck is already been performed. Permissive hypertension for the first 24 hours. Secondary to low EF, other comorbidities metoprolol has been started and will add low-dose GAVIN inhibitor. (2) HTN (hypertension): See above Continue metoprolol advancing dose to 25 mg twice daily, initiate GAVIN inhibitor (3) Anxiety: Stable currently (4) Chest pain: Troponins have been ordered. There is slight elevation consistent with type II elevation. Continue monitoring on telemetry Echocardiogram demonstrated EF around 35%. Global hypokinesis. We will have cardiology evaluate secondary to low EF, nonsustained ventricular tachycardia in the emergency department (5) Non-sustained ventricular tachycardia: See echo above Potassium and magnesium level was normal No evidence of arrhythmia after initiation of beta-catia Cardiology consultation will be obtained (6) Mediastinal mass: Incidental finding Noted to be present since 2010, with slight growth Could be playing a part in patient's described shortness of breath with laying down. CTA of chest, demonstrates 6 x 7 mediastinal mass with calcification, fluid, f at. May need biopsy, further evaluation as outpatient LDH, alpha-fetoprotein, beta-hCG ordered checked and normal exam normal I have visited with cardiothoracic surgery. Secondary to technical aspects of this case it would be best served by evaluation in [place]. This will be arranged as an outpatient, and patient prefers [facility]. Plan Density. Counseled on abstinence. Nicotine patch ordered. history of chronic back pain Full code currently SCDs, Lovenox for DVT prophylaxis Attestations Medical Necessity Statement*: Needs continued hospitalization pending cardiology evaluation for low EF, nonsustained ventricular tachycardia. Diagnoses Acute CVA (cerebrovascular accident) I63.9 HTN (hypertension) I10 Anxiety F41.9 Chest pain R07.9 Non-sustained ventricular tachycardia I47.29 Mediastinal mass J98.59 Time Spent (min) 42
[2022-06-07 09:41] VITALS: BP 164/106; PULSE 97; RESP 18; O2SAT 95
[2022-06-07] MEDS: metoprolol tartrate 25 mg Tablet PO ×2 (09:42→20:49)
[2022-06-07] MEDS: clopidogrel 75 mg Tablet PO (09:42)
[2022-06-07] MEDS: aspirin 81 mg EC Tablet PO (09:42)
[2022-06-07] MEDS: lisinopril 10 mg Tablet PO (09:42)
[2022-06-07] MEDS: nicotine 21 mg Patch 1 PATCH TRANSDERMA (09:42)
--- NOTE | 2022-06-07 10:14 | PC.CHAP ---
Pastoral Care Encounter/Spiritual Assessment Type of Contact [] Declined mdm developer visit [] Patient/Family/Request visit [] Outpatient visit [] Follow-up visit [] Physician referral [] Code/Alert [x] Routine visit [] Staff referral [] Actively dying [] Patient sleeping [] Family support [] [] Out of room [] Palliative care [] [] Receiving care in room [] Pre-surgical visit [] Trauma [] Long length of stay [] ICU visit [] Other: Relational/Emotional Strength [] Patient feels connected with others/family/visitors/staff [] Distress [] Loneliness/isolation [] Abandonment Spirituality of Patient [] Person of Nora [] Attends Adventism of their [place]ora [] Believes in Prayer [] Reads Bible or Hindu materials [] There are Spiritual issues to be addressed 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 [x] Prayer [] Active listening [] Non-anxious presence [] Spiritual/emotional support [] Crisis/trauma care [] Spiritual counseling [] Bereavement support [] Provided bereavement packet [] Provided Bible/devotional materials [] Provided toy/stuffed animal, coloring book to patient or family member [] Provided Communion [] Anointing/[place] [] Salvation [] Completed spiritual assessment [] Other: Impact on Illness or Injury [] Angry [] Fearful [] Anxious [] Often cries [] Exhaustion [] Unable to work [] Unable to attend yarsanism [] Unable to walk/stand [] Unable to read [] Unable to drive [] Unable to eat/drink [] Unable to sleep [] Unable to be with family [] Patient intubated [] Other: Summary Time spent with patient
[2022-06-07 11:34] VITALS: BP 147/103; PULSE 75; RESP 18; TEMP 36.6; O2SAT 94
--- NOTE | 2022-06-07 13:18 | P.CONIM_ITS ---
Providers/Reason For Consult Consulting Physician/Specialty*: JADEN Swanson MD/cardiology Reason for Consult*: Patient with cardiomyopathy/CVA Requesting Physician: Dr Retana Attending Physician: Fernandez Retana MD History of Present Illness History of Present Illness Vik Jones is a 51 year old male who is admitted to hospital with CVA. He was found to have an episode of wide-complex tachycardia on the monitor. His echocardiogram revealed an LV ejection fraction of 35 to 40%. Cardiology consult is requested for further cardiac evaluation recommendations. This patient apparently has not been to a physician for many years. He has no documented history for high blood pressure, diabetes or dyslipidemia. No history for any cardiac illness. He is admitted to hospital with features of CVA - presented with slurred speech, numbness of the left upper and lower ext remity. His symptoms are slowly subsiding at this time. Apparently he had an episode of wide-complex tachycardia of more than 30 beats in the emergency room. He spontaneously converted to sinus rhythm. His echocardiogram revealed LV ejection fraction of 35 to 40%. He was found to have diffuse hypokinesia of the left ventricle. He was found to have accelerated hypertension with a systolic blood pressure in the 200 range. Apparently he never been treated for high blood pressure. He has a history of smoking abuse, at least a pack a day for the last 25 years. No recent history of any alcohol abuse or any other substance abuse. His maternal grandfather had heart attack in the late 60s. One of his brothers had open heart surgery at the age of 56. Patient never been or have any children. Currently denies any chest pain or shortness of breath. No fever, chills or cough. Review of Systems Narrative: CONSTITUTIONAL: No fever or chills. EYES: No blurring of vision or other visual disturbances lately. ENT: No hoarseness of voice, auditory disturbances or sore throat. CARDIOVASCULAR: As mentioned above. RESPIRATORY: No significant cough. GASTROINTESTINAL: No hematemesis or melena. GENITOURINARY: No dysuria or hematuria. INTEGUMENTARY: No skin rashes or history of skin cancer. NEURO: No transient ischemic attacks or amaurosis. PSYCHIATRIC: No history of psychosis or major depression. HEMATOLOGIC: No bleeding disorders or significant anemia. ENDOCRINE: No history of polyuria or polydipsia. MUSCULOSKELETAL: He has a history of chronic back pain and he is disabled from this. Has not been working for the last 15 years or so. ALLERGY/IMMUNOLOGY: As mentioned above. Medications/Allergies Home Medications Medication Instructions Recorded Confirmed Last Taken Type No Known Home Medications 06/06/22 06/06/22 Unknown History Allergies Allergy/AdvReac Type Severity Reaction Status Date / Time No Known Allergies Allergy Verified 06/06/22 17:42 Current Medications Generic Name Dose Route Start Last Admin Trade Name Carlos PRN Reason Stop Dose Admin Aspirin 81 mg 06/07/22 09:00 06/07/22 09:42 Aspirin 81 Mg Ec Tablet PO 81 mg DAILY REBECA Administration Atorvastatin Calcium 40 mg 06/06/22 21:00 06/06/22 21:09 Atorvastatin 40 Mg Tablet PO 40 mg BEDTIME REBECA Administration Clopidogrel Bisulfate 75 mg 06/07/22 09:00 06/07/22 09:42 Clopidogrel 75 Mg Tablet PO 75 mg DAILY REBECA Administration Enoxaparin Sodium 40 mg 06/06/22 15:30 06/06/22 15:06 Enoxaparin 40 Mg/0.4 Ml Syringe SUBCUT 40 mg Q24H REBECA Administration Lisinopril 10 mg 06/07/22 09:00 06/07/22 09:42 Lisinopril 10 Mg Tablet PO 10 mg DAILY REBECA Administration Metoprolol Tartrate 25 mg 06/07/22 09:00 06/07/22 09:42 Metoprolol Tartrate 25 Mg Tablet PO 25 mg BID@0900,2100 REBECA Administration Nicotine 1 patch 06/06/22 15:00 06/07/22 09:42 Nicotine 21 Mg Patch TRANSDERMA 1 patch DAILY REBECA Administration PFSH Acute PFSH: Medical History Depression Ventricular tachycardia by electrocardiography Family History Other Hypertension Stroke Social History Smoking and tobacco status: current every day smoker Alcohol intake: never Substance/Drug Use: current Substance/Drug use type: Marijuana Vitals/I&O/Wt Last Vital Signs Temp 97.8 F 06/07/22 11:34 Pulse 75 06/07/22 11:34 Resp 18 06/07/22 11:34 BP 147/103 06/07/22 11:34 Pulse Ox 94 06/07/22 11:34 O2 Del Method 06/07/22 09:41 06/06/22 06/07/22 06/07/22 22:59 06:59 14:59 Intake Total 480 / 480 Output Total 1800 / 1800 Balance -1800 / -1800 480 / 480 Weight last 48 hrs Weight 200 lb Physical Exam Narrative: GENERAL: The patient is alert and oriented times three. Not in any acute distress. HEENT: No significant pallor, icterus or lymphadenopathy.Oral cavity: There are no mucous membrane lesions. NECK: Trachea appears to be central. No masses noted. No JVD or thyromegaly appreciated. RESPIRATORY: Chest is symmetrical. No intercostals muscle retraction or any accessory muscle activation. There is no chest wall tenderness. Breath sounds are heard bilaterally. No rales or rhonchi heard. No evidence of any consolidation. BREASTS: Deferred. HEART: The heart sounds are normal. No S3 or S4. No significant murmurs. No pericardial rub ABDOMEN: No vessel pulsations or distention. No tenderness. No organomegaly appreciated. Bowel sounds are normally heard. : Deferred. RECTAL: Deferred. LYMPHATIC: No lymphadenopathy noted in the neck. EXTREMITIES: No edema or cyanosis. No clubbing. MUSCULOSKELETAL: No acute joint deformities or swelling SKIN: There are no significant rashes or ecchymosis NEUROPSYCHIATRIC: Patient has left-sided facial weakness. No significant motor weakness of the upper and lower extremities. Data 06/07/22 03:44 06/07/22 03:44 Other Labs: Laboratory Last Values WBC 6.9 10^3/uL (4.0-10.0) 06/07/22 03:44 RBC 5.58 10^6/uL (4.1-5.3) H 06/07/22 03:44 Hgb 16.1 g/dL (11.7-16.6) 06/07/22 03:44 Hct 47.4 % (42.0-52.0) 06/07/22 03:44 MCV 84.9 fl (80-94) 06/07/22 03:44 MCH 28.9 pg (28.0-34.0) 06/07/22 03:44 MCHC 34.0 g/dL (30.0-36.0) 06/07/22 03:44 RDW 13.1 % (12.1-15.1) 06/07/22 03:44 Plt Count 219 10^3/cmm (130-400) 06/07/22 03:44 MPV 10.5 fL (7.4-10.4) H 06/07/22 03:44 Neut % (Auto) 76.9 % 06/07/22 03:44 Lymph % (Auto) 14.0 % 06/07/22 03:44 [place] % (Auto) 7.6 % 06/07/22 03:44 Eos % (Auto) 0.9 % 06/07/22 03:44 Baso % (Auto) 0.3 % 06/07/22 03:44 Neut # (Auto) 5.28 10^3/uL (1.8-7.7) 06/07/22 03:44 Lymph # (Auto) 1.0 10^3/uL (0.8-4.8) 06/07/22 03:44 [place] # (Auto) 0.5 10^3/uL (0.2-0.9) 06/07/22 03:44 Eos # (Auto) 0.1 10^3/uL (0.0-0.8) 06/07/22 03:44 Baso # (Auto) 0.0 10^3/uL (0.0-0.1) 06/07/22 03:44 Nucleated RBC % (auto) 0 % 06/07/22 03:44 Nucleated RBCs # 0.0 /100WBC 06/07/22 03:44 PT 12.20 SECONDS (12.1-14.9) 06/06/22 09:40 INR 0.88 (0.8-1.2) 06/06/22 09:40 APTT 33.2 SECONDS (23.9-36.7) 06/06/22 09:40 Sodium 136 mmol/L (136-145) 06/07/22 03:44 Potassium 3.8 mmol/L (3.5-5.1) 06/07/22 03:44 Chloride 101 mmol/L (98-107) 06/07/22 03:44 Carbon Dioxide 23 mmol/L (22-29) 06/07/22 03:44 Anion Gap 15.8 (5-19) 06/07/22 03:44 BUN 9 mg/dL (6-20) 06/07/22 03:44 Creatinine 0.9 mg/dL (0.7-1.2) 06/07/22 03:44 GFR Calculation 88.3 mL/min (90-130) L 06/07/22 03:44 Glucose 104 mg/dL (65-115) 06/07/22 03:44 Estimat Average Glucose 103 06/07/22 03:44 Hemoglobin A1c 5.2 % (4.0-6.0) 06/07/22 03:44 Calculated Osmolality 281 mOsm/kg (285-295) L 06/07/22 03:44 Calcium 9.2 mg/dL (8.5-10.5) 06/07/22 03:44 Magnesium 2.0 mg/dL (1.7-2.3) 06/06/22 13:15 Total Bilirubin 0.3 mg/dL (0.15-1.2) 06/06/22 09:40 AST 18 U/L (0-40) 06/06/22 09:40 ALT 14 U/L (0-41) 06/06/22 09:40 Alkaline Phosphatase 115 U/L (40-130) 06/06/22 09:40 Lactate Dehydrogenase 214 U/L (135-225) 06/06/22 13:15 Troponin T Gen 5 ng/L 24 ng/L (0-15) H 06/06/22 13:15 Total Protein 7.7 g/dL (6.6-8.7) 06/06/22 09:40 Albumin 4.6 g/dL (3.5-5.2) 06/06/22 09:40 Globulin 3.1 g/dL (1.3-4.6) 06/06/22 09:40 Triglycerides 181 mg/dL (0-150) H 06/07/22 03:44 Cholesterol 179 mg/dL (0-200) 06/07/22 03:44 LDL Cholesterol, Calc 109 mg/dL (50-129) 06/07/22 03:44 HDL Cholesterol 34 mg/dL (60-100) L 06/07/22 03:44 LDL/HDL Ratio 3.21 RATIO (0.00-3.22) 06/07/22 03:44 Cholesterol/HDL Ratio 5.26 mg/dL (1.0-5.00) H 06/07/22 03:44 Tumor Marker AFP 2.3 ng/mL (0-8.3) 06/06/22 13:15 Tumor Marker HCG 1 mIU/mL (0-3) 06/06/22 13:15 TSH 4.78 uIU/mL (0.27-4.20) H 06/06/22 09:36 Ser , Semi-Qnt Cancelled 06/06/22 13:15 Urine Color Light yellow (Yellow) 06/06/22 10:29 Urine Appearance Clear (CLEAR) 06/06/22 10:29 Urine pH 7 (5-7) 06/06/22 10:29 Ur Specific [place] 1.005 (1.005-1.030) 06/06/22 10:29 Urine Protein Neg (Negative) 06/06/22 10:29 Urine Glucose (UA) Norm (Normal) 06/06/22 10:29 Urine Ketones Negative (Negative) 06/06/22 10:29 Urine Blood Neg (Negative) 06/06/22 10:29 Urine Nitrate Negative (Negative) 06/06/22 10:29 Urine Bilirubin Neg (Negative) 06/06/22 10:29 Urine Urobilinogen Neg mg/dL (Negative) 06/06/22 10:29 Ur Leukocyte Esterase Negative (Negative) 06/06/22 10:29 Urine Opiates Screen Negative ng/mL (Negative) 06/06/22 10:29 Ur Barbiturates Screen Negative ng/mL (Negative) 06/06/22 10:29 Ur Phencyclidine Scrn Negative ng/mL (Negative) 06/06/22 10:29 Ur Amphetamines Screen Negative ng/mL (Negative) 06/06/22 10:29 U Benzodiazepines Scrn Negative ng/mL (Negative) 06/06/22 10:29 Urine Cocaine Screen Negative ng/mL (Negative) 06/06/22 10:29 U Marijuana (THC) Screen Positive ng/mL (Negative) H 06/06/22 10:29 CTA Chest: Radiologist's impression: 1. ? There is a well-circumscribed anterior mediastinal mass present. The mass measures 6 x 7 x 6 cm. 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 Consider surgical consultation. 2. ? No evidence of pulmonary embolism. 3. ? Mild cardiomegaly is noted. 4. ? Areas of ground-glass attenuation noted bilaterally. No consolidative infiltrates. Mild centrilobular emphysema is present. 5. ? Incidental note made of mild nonspecific bilateral hilar adenopathy. A&P Assessment and plan (1) Wide-complex tachycardia: The rhythm appears to be somewhat irregular. Atrial fibrillation with aberrancy is a good possibility. Only rhythm strip is available. In view of the patient's LV dysfunction, it might be appropriate to start him on amiodarone 400 mg p.o. twice daily for 10 days followed by 400 mg daily for 10 days followed by 200 mg daily. He may need to be closely monitored on telemetry. (2) Acute CVA (cerebrovascular accident): Patient is a symptoms are slowly improving. Possibility of an embolic stroke is a consideration. A GWENDOLYN would be appropriate to better evaluate for any cardiac source of embolization. (3) Cardiomyopathy: Etiology is not clear. Apparently the patient never had any chest pain. Hypertensive heart disease or other nonischemic cardiomyopathy also are considerations. Patient may benefit from a Myocardial perfusion imaging to further evaluate for any coronary ischemia. Since that he is asymptomatic, this may be done as an outpatient. (4) HTN (hypertension): The blood pressure is still elevated. However it may be acceptable in view of his CVA. (5) Mediastinal mass: This needs to be further evaluated. (6) Dyslipidemia: May continue on the current medications. Plan We will go ahead and schedule the patient for a GWENDOLYN tomorrow. Based on the results, further recommendations will be made. May be scheduled for Myocardial perfusion imaging as an outpatient. Thank you for the opportunity to evaluate this patient and make these recommendations Coding Level of Care Code 61645 Diagnoses Wide-complex tachycardia R00.0 Acute CVA (cerebrovascular accident) I63.9 Cardiomyopathy I42.9 HTN (hypertension) I10 Mediastinal mass J98.59 Dyslipidemia E78.5
[2022-06-07 16:38] VITALS: BP 125/89; PULSE 85; RESP 17; TEMP 36.7; O2SAT 94
[2022-06-07] MEDS: enoxaparin 40 mg/0.4 mL Syringe SUBCUT (16:45)
[2022-06-07 17:40] VITALS: BP 144/100; PULSE 86
[2022-06-07] MEDS: amiodarone 200 mg Tablet 400 MG PO (17:40)
[2022-06-07 20:00] VITALS: BP 125/90; PULSE 94; RESP 19; TEMP 36.6; O2SAT 93
[2022-06-07] MEDS: trazodone 100 mg Tablet PO (20:49)
[2022-06-07] MEDS: atorvastatin 40 mg Tablet PO (20:49)
[2022-06-08] VITALS (19 sets, daily range): BP systolic 89–145; BP diastolic 62–92; PULSE 64–80; RESP 12–24; TEMP 36.6–36.7; O2SAT 93–100
[2022-06-08 04:19] LABS: Basophils % 0.7 %; Eosinophils # 0.1 10^3/uL (0.0-0.8); Eosinophils % 2.3 %; Hematocrit 45.6 % (42.0-52.0); Lymphocytes # 1.3 10^3/uL (0.8-4.8); Lymphocytes % 29.6 %; Mean Corpuscular HGB Conc 32.9 g/dL (30.0-36.0); Mean Corpuscular Hemoglobin 28.4 pg (28.0-34.0); Mean Corpuscular Volume 86.4 fl (80-94); Mean Platelet Volume 11.3 fL (7.4-10.4); Monocytes # 0.4 10^3/uL (0.2-0.9); Monocytes % 10.1 %; Neutrophils # 2.43 10^3/uL (1.8-7.7); Neutrophils % 57.1 %; Nucleated Red Blood Cells % 0 %; Platelet Count 209 10^3/cmm (130-400); Red Blood Count 5.28 10^6/uL (4.1-5.3); Red Cell Distribution Width 13.3 % (12.1-15.1); White Blood Count 4.3 10^3/uL (4.0-10.0)
[2022-06-08 04:46] LABS: Anion Gap 13.3 (5-19); Blood Urea Nitrogen 14 mg/dL (6-20); Calcium 8.6 mg/dL (8.5-10.5); Carbon Dioxide 24 mmol/L (22-29); Chloride 103 mmol/L (98-107); Glomerular Filtration Rate 57.7 mL/min (90-130); Glucose 108 mg/dL (65-115); Osmolality Calculated 285 mOsm/kg (285-295); Potassium 3.3 mmol/L (3.5-5.1); Sodium 137 mmol/L (136-145)
--- NOTE | 2022-06-08 06:52 | W.PM.OPSUD ---
Surgery/Procedure H&P Update DATE OF PROCEDURE: June 08, 2022 DATE H&P PERFORMED: 06/07/22 H&P UPDATE INFORMATION: I have reviewed H&P completed within last 30 days, I have examined patient prior to procedure and No changes to prior documentation PREOP DIAGNOSIS: CVA/ cardiomyopathy PRIMARY INDICATION FOR PROCEDURE: CVA PLANNED PROCEDURE: Operation Date: 06/08/22 14:00 Proposed Procedures p GWENDOLYN(Not Applicable) - Francisco Swanson MD
--- NOTE | 2022-06-08 06:53 | P.PN_ITS ---
Subjective Subjective: Patient is feeling okay. Neurological symptoms seems to be slowly improving. No new neurological deficits. Vital signs are stable. Denies any fever, chills or cough. Medications: Medication Review Details: Current Medications Acetaminophen (Acetaminophen 325 Mg Tablet) 650 mg PO Q6H PRN PRN Reason: FEVER Amiodarone HCl (Amiodarone 200 Mg Tablet) 400 mg PO BID [facility] Last Admin: 06/07/22 17:40 Dose: 400 mg Aspirin (Aspirin 81 Mg Ec Tablet) 81 mg PO DAILY [facility] Last Admin: 06/07/22 09:42 Dose: 81 mg Atorvastatin Calcium (Atorvastatin 40 Mg Tablet) 40 mg PO BEDTIME [facility] Last Admin: 06/07/22 20:49 Dose: 40 mg Clopidogrel Bisulfate (Clopidogrel 75 Mg Tablet) 75 mg PO DAILY [facility] Last Admin: 06/07/22 09:42 Dose: 75 mg Enoxaparin Sodium (Enoxaparin 40 Mg/0.4 Ml Syringe) 40 mg SUBCUT Q24H [facility] Last Admin: 06/07/22 16:45 Dose: 40 mg Hydralazine HCl (Hydralazine 20 Mg/Ml Inj 1 Ml) 10 mg IVP Q4H PRN PRN Reason: HYPERTENSION Lisinopril (Lisinopril 10 Mg Tablet) 10 mg PO DAILY [facility] Last Admin: 06/07/22 09:42 Dose: 10 mg Lorazepam (Lorazepam 0.5 Mg Tablet) 0.5 mg PO BEDTIME PRN PRN Reason: ANXIETY Metoprolol Tartrate (Metoprolol Tartrate 25 Mg Tablet) 25 mg PO BID@0900,2100 [facility] Last Admin: 06/07/22 20:49 Dose: 25 mg Nicotine (Nicotine 21 Mg Patch) 1 patch TRANSDERMA DAILY [facility] Last Admin: 06/07/22 09:42 Dose: 1 patch Trazodone HCl (Trazodone 100 Mg Tablet) 100 mg PO BEDTIME [facility] Last Admin: 06/07/22 20:49 Dose: 100 mg Vitals/I&O/Wt Last Vital Signs Temp 98.1 F 06/08/22 04:00 Pulse 65 06/08/22 04:00 Resp 21 H 06/08/22 04:00 BP 126/79 06/08/22 04:00 Pulse Ox 95 06/08/22 04:00 O2 Del Method 06/08/22 04:00 06/07/22 06/07/22 06/08/22 14:59 22:59 06:59 Intake Total 720 / 720 100 / 820 Balance 720 / 720 100 / 820 Weight last 48 hrs Weight 200 lb Physical Exam Narrative: GENERAL: The patient is alert and oriented times three. Not in any acute distress. HEENT: No significant pallor, icterus or lymphadenopathy.Oral cavity: There are no mucous membrane lesions. NECK: Trachea appears to be central. No masses noted. No JVD or thyromegaly appreciated. RESPIRATORY: Chest is symmetrical. No intercostals muscle retraction or any accessory muscle activation. There is no chest wall tenderness. Breath sounds are heard bilaterally. No rales or rhonchi heard. No evidence of any consolidation. BREASTS: Deferred. HEART: The heart sounds are normal. No S3 or S4. No significant murmurs. No pericardial rub ABDOMEN: No vessel pulsations or distention. No tenderness. No organomegaly appreciated. Bowel sounds are normally heard. : Deferred. RECTAL: Deferred. LYMPHATIC: No lymphadenopathy noted in the neck. EXTREMITIES: No edema or cyanosis. No clubbing. MUSCULOSKELETAL: No acute joint deformities or swelling SKIN: There are no significant rashes or ecchymosis NEUROPSYCHIATRIC: Left-sided facial weakness persists. Data 06/08/22 02:55 06/08/22 02:55 Other Labs: Laboratory Last Values WBC 4.3 10^3/uL (4.0-10.0) 06/08/22 02:55 RBC 5.28 10^6/uL (4.1-5.3) 06/08/22 02:55 Hgb 15.0 g/dL (11.7-16.6) 06/08/22 02:55 Hct 45.6 % (42.0-52.0) 06/08/22 02:55 MCV 86.4 fl (80-94) 06/08/22 02:55 MCH 28.4 pg (28.0-34.0) 06/08/22 02:55 MCHC 32.9 g/dL (30.0-36.0) 06/08/22 02:55 RDW 13.3 % (12.1-15.1) 06/08/22 02:55 Plt Count 209 10^3/cmm (130-400) 06/08/22 02:55 MPV 11.3 fL (7.4-10.4) H 06/08/22 02:55 Neut % (Auto) 57.1 % 06/08/22 02:55 Lymph % (Auto) 29.6 % 06/08/22 02:55 [place] % (Auto) 10.1 % 06/08/22 02:55 Eos % (Auto) 2.3 % 06/08/22 02:55 Baso % (Auto) 0.7 % 06/08/22 02:55 Neut # (Auto) 2.43 10^3/uL (1.8-7.7) 06/08/22 02:55 Lymph # (Auto) 1.3 10^3/uL (0.8-4.8) 06/08/22 02:55 [place] # (Auto) 0.4 10^3/uL (0.2-0.9) 06/08/22 02:55 Eos # (Auto) 0.1 10^3/uL (0.0-0.8) 06/08/22 02:55 Baso # (Auto) 0.0 10^3/uL (0.0-0.1) 06/08/22 02:55 Nucleated RBC % (auto) 0 % 06/08/22 02:55 Nucleated RBCs # 0.0 /100WBC 06/08/22 02:55 PT 12.20 SECONDS (12.1-14.9) 06/06/22 09:40 INR 0.88 (0.8-1.2) 06/06/22 09:40 APTT 33.2 SECONDS (23.9-36.7) 06/06/22 09:40 Sodium 137 mmol/L (136-145) 06/08/22 02:55 Potassium 3.3 mmol/L (3.5-5.1) L 06/08/22 02:55 Chloride 103 mmol/L (98-107) 06/08/22 02:55 Carbon Dioxide 24 mmol/L (22-29) 06/08/22 02:55 Anion Gap 13.3 (5-19) 06/08/22 02:55 BUN 14 mg/dL (6-20) 06/08/22 02:55 Creatinine 1.3 mg/dL (0.7-1.2) H 06/08/22 02:55 GFR Calculation 57.7 mL/min (90-130) L 06/08/22 02:55 Glucose 108 mg/dL (65-115) 06/08/22 02:55 Estimat Average Glucose 103 06/07/22 03:44 Hemoglobin A1c 5.2 % (4.0-6.0) 06/07/22 03:44 Calculated Osmolality 285 mOsm/kg (285-295) 06/08/22 02:55 Calcium 8.6 mg/dL (8.5-10.5) 06/08/22 02:55 Magnesium 2.0 mg/dL (1.7-2.3) 06/06/22 13:15 Total Bilirubin 0.3 mg/dL (0.15-1.2) 06/06/22 09:40 AST 18 U/L (0-40) 06/06/22 09:40 ALT 14 U/L (0-41) 06/06/22 09:40 Alkaline Phosphatase 115 U/L (40-130) 06/06/22 09:40 Lactate Dehydrogenase 214 U/L (135-225) 06/06/22 13:15 Troponin T Gen 5 ng/L 24 ng/L (0-15) H 06/06/22 13:15 Total Protein 7.7 g/dL (6.6-8.7) 06/06/22 09:40 Albumin 4.6 g/dL (3.5-5.2) 06/06/22 09:40 Globulin 3.1 g/dL (1.3-4.6) 06/06/22 09:40 Triglycerides 181 mg/dL (0-150) H 06/07/22 03:44 Cholesterol 179 mg/dL (0-200) 06/07/22 03:44 LDL Cholesterol, Calc 109 mg/dL (50-129) 06/07/22 03:44 HDL Cholesterol 34 mg/dL (60-100) L 06/07/22 03:44 LDL/HDL Ratio 3.21 RATIO (0.00-3.22) 06/07/22 03:44 Cholesterol/HDL Ratio 5.26 mg/dL (1.0-5.00) H 06/07/22 03:44 Tumor Marker AFP 2.3 ng/mL (0-8.3) 06/06/22 13:15 Tumor Marker HCG 1 mIU/mL (0-3) 06/06/22 13:15 TSH 4.78 uIU/mL (0.27-4.20) H 06/06/22 09:36 Ser , Semi-Qnt Cancelled 06/06/22 13:15 Urine Color Light yellow (Yellow) 06/06/22 10:29 Urine Appearance Clear (CLEAR) 06/06/22 10:29 Urine pH 7 (5-7) 06/06/22 10:29 Ur Specific [place] 1.005 (1.005-1.030) 06/06/22 10:29 Urine Protein Neg (Negative) 06/06/22 10:29 Urine Glucose (UA) Norm (Normal) 06/06/22 10:29 Urine Ketones Negative (Negative) 06/06/22 10:29 Urine Blood Neg (Negative) 06/06/22 10:29 Urine Nitrate Negative (Negative) 06/06/22 10:29 Urine Bilirubin Neg (Negative) 06/06/22 10:29 Urine Urobilinogen Neg mg/dL (Negative) 06/06/22 10:29 Ur Leukocyte Esterase Negative (Negative) 06/06/22 10:29 Urine Opiates Screen Negative ng/mL (Negative) 06/06/22 10:29 Ur Barbiturates Screen Negative ng/mL (Negative) 06/06/22 10:29 Ur Phencyclidine Scrn Negative ng/mL (Negative) 06/06/22 10:29 Ur Amphetamines Screen Negative ng/mL (Negative) 06/06/22 10:29 U Benzodiazepines Scrn Negative ng/mL (Negative) 06/06/22 10:29 Urine Cocaine Screen Negative ng/mL (Negative) 06/06/22 10:29 U Marijuana (THC) Screen Positive ng/mL (Negative) H 06/06/22 10:29 A&P Assessment and plan (1) Wide-complex tachycardia: The rhythm appears to be somewhat irregular. Atrial fibrillation with aberrancy is a good possibility. Only rhythm strip is available. In view of the patie nt's LV dysfunction, it might be appropriate to start him on amiodarone 400 mg p.o. twice daily for 10 days followed by 400 mg daily for 10 days followed by 200 mg daily. He may need to be closely monitored on telemetry. (2) Acute CVA (cerebrovascular accident): Patient is a symptoms are slowly improving. Possibility of an embolic stroke is a consideration. A GWENDOLYN would be appropriate to better evaluate for any cardiac source of embolization. The patient is scheduled for the procedure today. (3) Cardiomyopathy: Etiology is not clear. Apparently the patient never had any chest pain. Hypertensive heart disease or other nonischemic cardiomyopathy also are considerations. Patient may benefit from a Myocardial perfusion imaging to further evaluate for any coronary ischemia. Since that he is asymptomatic, this may be done as an outpatient. (4) HTN (hypertension): currently normotensive. May continue on the current medications. (5) Mediastinal mass: This needs to be further evaluated. (6) Dyslipidemia: May continue on the current medications. Plan Other problems are Mild hypokalemia Acute kidney injury GWENDOLYN today. Based on the results, further recommendations will be made Attestations Medical Necessity Statement*: Patient requires continued hospital stay for close monitoring and further management Coding Level of Care Code 82089 Diagnoses Wide-complex tachycardia R00.0 Acute CVA (cerebrovascular accident) I63.9 Cardiomyopathy I42.9 HTN (hypertension) I10 Mediastinal mass J98.59 Dyslipidemia E78.5
--- NOTE | 2022-06-08 07:05 | P.ANESASSM_ITS ---
Pre-Anesthetic Assessment Height/Weight: Height 1.88 m Weight 90.718 kg Temp Pulse Resp BP Pulse Ox O2 Del Method 98.1 F 65 21 H 126/79 95 06/08/22 04:00 06/08/22 04:00 06/08/22 04:00 06/08/22 04:00 06/08/22 04:00 06/08/22 04:00 Preop Diagnosis: CVA/ cardiomyopathy Operation Date: 06/08/22 14:00 Proposed Procedures p GWENDOLYN(Not Applicable) - Francisco Swanson MD Familial anesthetic complications: none Was Beta John taken within 24 hours: N/A Was Clonidine taken within 24 hours: N/A Last Intake: 23:00 Social Tobacco and No alcohol 1 pack(s) per day 20+ pack years Exam alert, oriented x 3, clear to auscultation bilaterally and regular rate & rhythm Airway Submandibular: within normal limits Cervical ROM: within normal limits Mallampati: Class I Dentition: false (upper) Pulmonary Chronic Obstructive Pulmonary Disease, Exertional Dyspnea and Shortness of Breath CV/HEM None reported wide complex tachy on arrival to ED. nsr now None reported Hepatic None reported GI Gastroesophageal Reflux Disease Metabolic None reported Musc/skel Lower Back Pain Neuropsych Cerebrovascular Accident (l side weakness) Anesthetic Plan ASA status: 3 Anesthesia: MAC Medications/Allergies Home Medications Medication Instructions Recorded Confirmed Last Taken Type No Known Home Medications 06/06/22 06/06/22 Unknown History Allergies Allergy/AdvReac Type Severity Reaction Status Date / Time No Known Allergies Allergy Verified 06/06/22 17:42 Current Medications Generic Name Dose Route Start Last Admin Trade Name Carlos PRN Reason Stop Dose Admin Amiodarone HCl 400 mg 06/07/22 18:00 06/07/22 17:40 Amiodarone 200 Mg Tablet PO 400 mg BID REBECA Administration Aspirin 81 mg 06/07/22 09:00 06/07/22 09:42 Aspirin 81 Mg Ec Tablet PO 81 mg DAILY REBECA Administration Atorvastatin Calcium 40 mg 06/06/22 21:00 06/07/22 20:49 Atorvastatin 40 Mg Tablet PO 40 mg BEDTIME REBECA Administration Clopidogrel Bisulfate 75 mg 06/07/22 09:00 06/07/22 09:42 Clopidogrel 75 Mg Tablet PO 75 mg DAILY REBECA Administration Enoxaparin Sodium 40 mg 06/06/22 15:30 06/07/22 16:45 Enoxaparin 40 Mg/0.4 Ml Syringe SUBCUT 40 mg Q24H [facility] Administration Lisinopril 10 mg 06/07/22 09:00 06/07/22 09:42 Lisinopril 10 Mg Tablet PO 10 mg DAILY [facility] Administration Metoprolol Tartrate 25 mg 06/07/22 09:00 06/07/22 20:49 Metoprolol Tartrate 25 Mg Tablet PO 25 mg BID@0900,2100 [facility] Administration Nicotine 1 patch 06/06/22 15:00 06/07/22 09:42 Nicotine 21 Mg Patch TRANSDERMA 1 patch DAILY [facility] Administration Trazodone HCl 100 mg 06/07/22 21:00 06/07/22 20:49 Trazodone 100 Mg Tablet PO 100 mg BEDTIME [facility] Administration Additional Medication Information Current Medications Acetaminophen (Acetaminophen 325 Mg Tablet) 650 mg PO Q6H PRN PRN Reason: FEVER Amiodarone HCl (Amiodarone 200 Mg Tablet) 400 mg PO BID [facility] Last Admin: 06/07/22 17:40 Dose: 400 mg Aspirin (Aspirin 81 Mg Ec Tablet) 81 mg PO DAILY [facility] Last Admin: 06/07/22 09:42 Dose: 81 mg Atorvastatin Calcium (Atorvastatin 40 Mg Tablet) 40 mg PO BEDTIME [facility] Last Admin: 06/07/22 20:49 Dose: 40 mg Clopidogrel Bisulfate (Clopidogrel 75 Mg Tablet) 75 mg PO DAILY [facility] Last Admin: 06/07/22 09:42 Dose: 75 mg Enoxaparin Sodium (Enoxaparin 40 Mg/0.4 Ml Syringe) 40 mg SUBCUT Q24H [facility] Last Admin: 06/07/22 16:45 Dose: 40 mg Hydralazine HCl (Hydralazine 20 Mg/Ml Inj 1 Ml) 10 mg IVP Q4H PRN PRN Reason: HYPERTENSION Lisinopril (Lisinopril 10 Mg Tablet) 10 mg PO DAILY [facility] Last Admin: 06/07/22 09:42 Dose: 10 mg Lorazepam (Lorazepam 0.5 Mg Tablet) 0.5 mg PO BEDTIME PRN PRN Reason: ANXIETY Metoprolol Tartrate (Metoprolol Tartrate 25 Mg Tablet) 25 mg PO BID@0900,2100 [facility] Last Admin: 06/07/22 20:49 Dose: 25 mg Nicotine (Nicotine 21 Mg Patch) 1 patch TRANSDERMA DAILY [facility] Last Admin: 06/07/22 09:42 Dose: 1 patch Trazodone HCl (Trazodone 100 Mg Tablet) 100 mg PO BEDTIME [facility] Last Admin: 06/07/22 20:49 Dose: 100 mg PFSH Anesthesia Medical History Depression Ventricular tachycardia by electrocardiography Family History Other Hypertension Stroke Social History Smoking and tobacco status: current every day smoker Alcohol intake: never Substance/Drug Use: current Substance/Drug use type: Marijuana Data Anesthesia 06/08/22 02:55 06/08/22 02:55 Short CBC 06/06/22 06/07/22 06/08/22 Range/Units 09:40 03:44 02:55 WBC 4.8 6.9 4.3 (4.0-10.0) 10^3/uL Hgb 15.6 16.1 15.0 (11.7-16.6) g/dL Hct 46.6 47.4 45.6 (42.0-52.0) % MCV 86.8 84.9 86.4 (80-94) fl Plt Count 205 219 209 (130-400) 10^3/cmm Neut % (Auto) 62.3 76.9 57.1 % Neut # (Auto) 3.01 5.28 2.43 (1.8-7.7) 10^3/uL BMP 06/06/22 06/07/22 06/08/22 09:40 03:44 02:55 Sodium 133 L 136 137 Potassium 3.9 3.8 3.3 L Chloride 99 101 103 Carbon Dioxide 27 23 24 BUN 12 9 14 Creatinine 1.0 0.9 1.3 H Glucose 87 104 108 Calcium 8.8 9.2 8.6 Cardiac Enzymes 06/06/22 06/06/22 Range/Units 09:36 13:15 Troponin T Gen 5 ng/L 23 H 24 H (0-15) ng/L Liver Function 06/06/22 Range/Units 09:40 Total Bilirubin 0.3 (0.15-1.2) mg/dL AST 18 (0-40) U/L ALT 14 (0-41) U/L Alkaline Phosphatase 115 (40-130) U/L Albumin 4.6 (3.5-5.2) g/dL Urine 06/06/22 Range/Units 10:29 Urine Color Light yellow (Yellow) Urine Appearance Clear (CLEAR) Urine pH 7 (5-7) Ur Specific [place] 1.005 (1.005-1.030) Urine Protein Neg (Negative) Urine Glucose (UA) Norm (Normal) Urine Ketones Negative (Negative) Urine Nitrate Negative (Negative) Urine Bilirubin Neg (Negative) Ur Leukocyte Esterase Negative (Negative) Coags 06/06/22 09:40 PT 12.20 INR 0.88 APTT 33.2 Cardiac Studies: Echocardiogram 06/06/22
[2022-06-08] MEDS: clopidogrel 75 mg Tablet PO (10:15)
[2022-06-08] MEDS: metoprolol tartrate 25 mg Tablet PO (10:15)
[2022-06-08] MEDS: amiodarone 200 mg Tablet 400 MG PO (10:15)
[2022-06-08] MEDS: aspirin 81 mg EC Tablet PO (10:16)
[2022-06-08] MEDS: nicotine 21 mg Patch 1 PATCH TRANSDERMA (10:16)
--- NOTE | 2022-06-08 10:16 | P.DS_ITS ---
Discharge Providers Date of Admission: 06/06/22 13:10 Date of Discharge: June 08, 2022 Attending Provider at Admission: Fernandez Retana MD Attending Provider at Discharge: Fernandez Retana MD Diagnoses at Discharge Discharge Diagnosis (1) Wide-complex tachycardia: Status: Acute (2) Acute CVA (cerebrovascular accident): Status: Acute (3) Cardiomyopathy: Status: Acute (4) HTN (hypertension): Status: Acute (5) Mediastinal mass: Status: Acute (6) Dyslipidemia: Status: Acute Reason for Visit Reason for Visit: stroke like symptoms Hospital Course Hospital Course Vik is a 51-year-old white male who was admitted to the hospital with stroke symptoms consisting of left hemiparesis and left facial droop. He was not a candidate for tPA or thrombectomy. Head CT demonstrated no findings. CTA did not demonstrate any obvious thrombus. Hypoplastic right A1 segment was noted. Incidentally found was a mediastinal mass, later evaluated by CTA of the chest with dimensions of 6 x 6 x 7 cm. This was not thought to be related to the CVA. He also had arrhythmia in the emergency department prior to admission consisting of either ventricular tachycardia versus A-fib with aberrancy. Cardiology evaluated him for this with GWENDOLYN demonstrating no thrombus, and he was placed ultimately on amiodarone. He had no further telemetry disturbances while in the hospital and an event monitor was ordered at discharge. I discussed with him the great need for follow-up with multiple physicians including neurology, cardiology, establishing a primary care provider. I also called cardiothoracic surgery at [facility], to arrange follow-up for his large mediastinal mass. I spoke with the police department secretary of [facility] who took information from me and was going to expeditiously worked the patient and for follow-up. The mass that was seen was first identified in 2010 on an MRI of the spine. On imaging at our hospital there is concern for possible teratoma secondary to calcification, fat and fluid seen in the mass. I did perform a testicular exam that was normal while the patient was in the hospital. Beta-hCG, LDH, alpha-fetoprotein were all normal. Patient was given opportunity ask questions, and agreed with the plan. At discharge the patient's neurologic exam was greatly improved he was able to ambulate in the halls without significant deficit. Slight weakness persisted on the left side and very slight facial droop. Physical Exam Narrative: General exam no distress Neck is supple no lymphadenopathy thyromegaly Cardiovascular regular rate and rhythm without murmur Lungs clear Abdomen is soft Extremities no cyanosis clubbing or edema Neuro mild left hemiparesis strength 4/5 upper and lower extremity and mild left facial droop. Discharge Data Studies Completed and Pending Completed Studies During Hospitalization Category Date Time Status CT head thrombolytic [id number] Stat Cat Scan 06/06/22 09:45 Completed CTA chest [CT angio chest PE protcl [id number]] Routine Cat Scan 06/06/22 14:53 Completed CTA head neck [CT angio headneck* [id number]] Stat Cat Scan 06/06/22 09:51 Completed CV. echo complete* [id number] Routine Ultrasound 06/06/22 14:39 Completed Pending at discharge Category Date Time Status CV. echo transesophageal [id number] Routine Ultrasound 06/08/22 11:00 Taken Radiology Impressions Head CT 06/06/22 09:45 IMPRESSION: 1. No acute intracranial hemorrhage. 2. Indeterminate but suspicious for acute thrombus RIGHT M1 segment. 3. Remote tiny lacunar infarcts in the LEFT [place] radiata and RIGHT basal ganglia. 4. Increased low attenuation in the RIGHT basal ganglia is new since 2012. Could represent an area of early underlying infarct. Notified Steve Storm DO at 06/06/2022 10:14 AM. Head/Neck CTA 06/06/22 09:51 IMPRESSION: 1. Normal carotid arteries. 2. No significant stenosis. No thrombus or emboli identified within the RIGHT M1 segment. 3. Hypoplastic RIGHT A1 segment. 4. Fat-containing anterior mediastinal mass measures 7.0 x 5.5 cm. 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 This mass was also described on a prior MRI from 2010 with only minimal increase in size. At that time further evaluation with chest CT was recommended. This may have been performed at an outside imaging center. Chest CTA 06/06/22 14:53 IMPRESSION: 1. There is a well-circumscribed anterior mediastinal mass present. The mass measures 6 x 7 x 6 cm. 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 Consider surgical consultation. 2. No evidence of pulmonary embolism. 3. Mild cardiomegaly is noted. 4. Areas of ground-glass attenuation noted bilaterally. No consolidative infiltrates. Mild centrilobular emphysema is present. 5. Incidental note made of mild nonspecific bilateral hilar adenopathy. COMMENTS: 1. Consistent with the [place] [employer]'s Incidental Findings Committee white paper (J Am Nikolas Radiol 2015): In patients aged 35 years and older with an incidental thyroid nodule equal to or greater than 1.[address], MRI or extrathyroidal US, further evaluation with dedicated thyroid US is recommended for patients with normal life expectancy and without comorbidities. For smaller nodules without suspicious features, no further evaluation or follow up is recommended. 2. In the absence of a history or active diagnosis of lung cancer, it is recommended that this patient with emphysema be evaluated for enrollment in a low dose CT lung cancer screening program. Laboratory Results WBC 4.3 10^3/uL (4.0-10.0) 06/08/22 02:55 RBC 5.28 10^6/uL (4.1-5.3) 06/08/22 02:55 Hgb 15.0 g/dL (11.7-16.6) 06/08/22 02:55 Hct 45.6 % (42.0-52.0) 06/08/22 02:55 MCV 86.4 fl (80-94) 06/08/22 02:55 MCH 28.4 pg (28.0-34.0) 06/08/22 02:55 MCHC 32.9 g/dL (30.0-36.0) 06/08/22 02:55 RDW 13.3 % (12.1-15.1) 06/08/22 02:55 Plt Count 209 10^3/cmm (130-400) 06/08/22 02:55 MPV 11.3 fL (7.4-10.4) H 06/08/22 02:55 Neut % (Auto) 57.1 % 06/08/22 02:55 Lymph % (Auto) 29.6 % 06/08/22 02:55 [place] % (Auto) 10.1 % 06/08/22 02:55 Eos % (Auto) 2.3 % 06/08/22 02:55 Baso % (Auto) 0.7 % 06/08/22 02:55 Neut # (Auto) 2.43 10^3/uL (1.8-7.7) 06/08/22 02:55 Lymph # (Auto) 1.3 10^3/uL (0.8-4.8) 06/08/22 02:55 [place] # (Auto) 0.4 10^3/uL (0.2-0.9) 06/08/22 02:55 Eos # (Auto) 0.1 10^3/uL (0.0-0.8) 06/08/22 02:55 Baso # (Auto) 0.0 10^3/uL (0.0-0.1) 06/08/22 02:55 Nucleated RBC % (auto) 0 % 06/08/22 02:55 Nucleated RBCs # 0.0 /100WBC 06/08/22 02:55 PT 12.20 SECONDS (12.1-14.9) 06/06/22 09:40 INR 0.88 (0.8-1.2) 06/06/22 09:40 APTT 33.2 SECONDS (23.9-36.7) 06/06/22 09:40 Sodium 137 mmol/L (136-145) 06/08/22 02:55 Potassium 3.3 mmol/L (3.5-5.1) L 06/08/22 02:55 Chloride 103 mmol/L (98-107) 06/08/22 02:55 Carbon Dioxide 24 mmol/L (22-29) 06/08/22 02:55 Anion Gap 13.3 (5-19) 06/08/22 02:55 BUN 14 mg/dL (6-20) 06/08/22 02:55 Creatinine 1.3 mg/dL (0.7-1.2) H 06/08/22 02:55 GFR Calculation 57.7 mL/min (90-130) L 06/08/22 02:55 Glucose 108 mg/dL (65-115) 06/08/22 02:55 Estimat Average Glucose 103 06/07/22 03:44 Hemoglobin A1c 5.2 % (4.0-6.0) 06/07/22 03:44 Calculated Osmolality 285 mOsm/kg (285-295) 06/08/22 02:55 Calcium 8.6 mg/dL (8.5-10.5) 06/08/22 02:55 Magnesium 2.0 mg/dL (1.7-2.3) 06/06/22 13:15 Total Bilirubin 0.3 mg/dL (0.15-1.2) 06/06/22 09:40 AST 18 U/L (0-40) 06/06/22 09:40 ALT 14 U/L (0-41) 06/06/22 09:40 Alkaline Phosphatase 115 U/L (40-130) 06/06/22 09:40 Lactate Dehydrogenase 214 U/L (135-225) 06/06/22 13:15 Troponin T Gen 5 ng/L 24 ng/L (0-15) H 06/06/22 13:15 Total Protein 7.7 g/dL (6.6-8.7) 06/06/22 09:40 Albumin 4.6 g/dL (3.5-5.2) 06/06/22 09:40 Globulin 3.1 g/dL (1.3-4.6) 06/06/22 09:40 Triglycerides 181 mg/dL (0-150) H 06/07/22 03:44 Cholesterol 179 mg/dL (0-200) 06/07/22 03:44 LDL Cholesterol, Calc 109 mg/dL (50-129) 06/07/22 03:44 HDL Cholesterol 34 mg/dL (60-100) L 06/07/22 03:44 LDL/HDL Ratio 3.21 RATIO (0.00-3.22) 06/07/22 03:44 Cholesterol/HDL Ratio 5.26 mg/dL (1.0-5.00) H 06/07/22 03:44 Tumor Marker AFP 2.3 ng/mL (0-8.3) 06/06/22 13:15 Tumor Marker HCG 1 mIU/mL (0-3) 06/06/22 13:15 TSH 4.78 uIU/mL (0.27-4.20) H 06/06/22 09:36 Ser , Semi-Qnt Cancelled 06/06/22 13:15 Urine Color Light yellow (Yellow) 06/06/22 10:29 Urine Appearance Clear (CLEAR) 06/06/22 10:29 Urine pH 7 (5-7) 06/06/22 10:29 Ur Specific [employer] 1.005 (1.005-1.030) 06/06/22 10:29 Urine Protein Neg (Negative) 06/06/22 10:29 Urine Glucose (UA) Norm (Normal) 06/06/22 10:29 Urine Ketones Negative (Negative) 06/06/22 10:29 Urine Blood Neg (Negative) 06/06/22 10:29 Urine Nitrate Negative (Negative) 06/06/22 10:29 Urine Bilirubin Neg (Negative) 06/06/22 10:29 Urine Urobilinogen Neg mg/dL (Negative) 06/06/22 10:29 Ur Leukocyte Esterase Negative (Negative) 06/06/22 10:29 Urine Opiates Screen Negative ng/mL (Negative) 06/06/22 10:29 Ur Barbiturates Screen Negative ng/mL (Negative) 06/06/22 10:29 Ur Phencyclidine Scrn Negative ng/mL (Negative) 06/06/22 10:29 Ur Amphetamines Screen Negative ng/mL (Negative) 06/06/22 10:29 U Benzodiazepines Scrn Negative ng/mL (Negative) 06/06/22 10:29 Urine Cocaine Screen Negative ng/mL (Negative) 06/06/22 10:29 U Marijuana (THC) Screen Positive ng/mL (Negative) H 06/06/22 10:29 Vitals Last Vital Signs Temp 98.1 F 06/08/22 04:00 Pulse 64 06/08/22 08:30 Resp 13 06/08/22 08:30 BP 115/80 06/08/22 08:30 Pulse Ox 100 06/08/22 08:30 O2 Del Method 06/08/22 08:30 O2 Flow Rate 3 06/08/22 07:35 Discharge Plan Discharge Patient Disposition: Home Condition: Stable Prescriptions: New atorvastatin 40 mg Tablet 40 mg PO BEDTIME Qty: 30 0RF Pacerone 200 mg Tablet 400 mg PO BID Qty: 67 0RF Rx Instructions: Take 400mg BID for 10 days, then 400mg daily for 7 days, then 200mg a day clopidogrel 75 mg Tablet 75 mg PO DAILY Qty: 30 0RF aspirin 81 mg Tablet,Delayed Release (Dr/Ec) 81 mg PO DAILY Qty: 30 0RF lisinopril 10 mg Tablet 5 mg PO DAILY Qty: 15 0RF metoprolol tartrate 25 mg Tablet 25 mg PO BID@0900,2100 Qty: 60 0RF Discharge Orders: Discharge Order (Routine); Ordered 06/08/22 Ordered By: Fernandez Retana Other Ambulatory Orders: MCT/Event Monitor 21 Days (Routine) Timeframe: 1 Day Facility: [facility] - Location: Radiology Ordered By: Fernandez Retana Referrals: Shantal Queen MD [Physician] - 06/20/22 10:00 am ( cva) Pino Ching MD [Referring] - 06/13/22 2:00 pm Ada Butler FNP [Nurse Practitioner] - 06/15/22 2:45 pm (follow up arrythmia Your 21 day event monitor is scheduled for 06-20-22 at 12:45 pm. Your follow up appt with Ada Butler is scheduled for 06-15-22 at 2:45 pm. Please call [phone] with questions or concerns. Thank you. ) Discharge Diet: Cardiac Discharge Activity: Increase activity as tolerated Patient Instructions: Metoprolol (By mouth) (Lopressor, Toprol XL), Lisinopril (By mouth) (Prinivil, Zestril), Aspirin (By mouth) (Otilia Extra Strength, Carritus Aspirin Children's,..., Amiodarone (By mouth) (Cordarone, Pacerone), Atorvastatin (By mouth) (Lipitor), Clopidogrel (By mouth) (Plavix), Tachycardia (GEN), Transesophageal Echocardiogram (DC), Opioid Safety, Stroke Stoplight Activity Restrictions/Additional Instructions: Take all medicine as prescribed Return for any concerns Follow-up with cardiology, primary care provider as well as CT surgeon Patient's Health Concerns: Weakness left side weakness left side Assessment: Stroke Anterior mediastinal l mass Cardiac arrhythmia Plan of Treatment: Plavix, aspirin, statin. Heath smalls with cardiology, neurology, primary care provider, CT surgery Discharge Attestations Time Spent in Discharge Care*: greater than 30 min Quality Metrics Clinical Quality Measures [ Cerebrovascular Accident { Contraindication to Antithrombotic: None; a ntithrombotic prescribed (not indicated); Contraindication to Anticoagulation: Other (not indicated); Contraindication to Statin: None; Statin prescribed;}] Coding Level of Care Code 70153 Diagnoses Wide-complex tachycardia R00.0 Acute CVA (cerebrovascular accident) I63.9 Cardiomyopathy I42.9 HTN (hypertension) I10 Mediastinal mass J98.59 Dyslipidemia E78.5 Time Spent (min) 42
[2022-06-08] MEDS: potassium chloride ER 20 mEq Tablet 40 MEQ PO (10:27)
--- NOTE | 2022-06-08 11:00 | USCV_ITS ---
Vik Jones Age: 51 Gender: M : 1970 Exam Date: 06/08/2022 07:13 Ordering Phys: Fernandez Retana MD Technologist: VIC Exam Location: [facility] Indication: CVA, EVAL FOR THROMBUS BP: 129 / 82 HR: 75 Rhythm: Sinus Technical Quality: Adequate MEASUREMENTS (Male / Female) Normal Values 2D ECHO LV Ejection Fraction MOD 2C 51.9 % LV Ejection Fraction 2C AL 52.1 % Medications Patient given IV sedation by anesthesia service, for details please refer to the anesthesia report. Complications None. Proc. Components The procedure was performed including #106.the GWENDOLYN probe was passed into the posterior pharynx , mid-esophagus, distal esophagus, and gastric fundus. FINDINGS Left Ventricle Mild diffuse hypokinesia with left ventricular ejection fraction of 50% Right Ventricle Normal right ventricular size and systolic function. Right Atrium Normal size Left Atrium No intracavitary masses. Appears to be of normal size. LA Appendage Normal size and contractility. IA Septum Appears to be intact with no evidence of any left or right or right left shunt by color-flow Doppler examination or saline contrast injection Mitral Valve Trace of mitral regurgitation Aortic Valve Thickened aortic valve with no masses or vegetations Tricuspid Valve No gross abnormalities noted. Trace of TR Pulmonic Valve No gross abnormalities noted Pericardium No pericardial effusion. Aorta Ascending aorta and arch were found to be of normal size with no evidence of aneurysm or unstable lesions CONCLUSIONS Mild diffuse hypokinesia with left ventricular ejection fraction of 50%. The left atrium and appendage was of normal size. Normal contractility in the appendage. No intracavitary masses. Trace of mitral regurgitation. No intracardiac shunts by color-flow Doppler examination or saline contrast injection Thickened aortic valve with no masses or vegetations. No similar previous studies are available for comparison Dr Francisco Swanson MD [facility] (Electronically Signed) Final Date: 08 June 2022 14:53 S
--- NOTE | 2022-06-08 12:20 | PC.NURSE ---
IV removed, patient verbalized understanding on all education provided. patient left with alexx key. discharge package with patient.
== END 2022-06-08 12:17 | disposition home or self-care (01) | DRG 64 ==
LOC: ER 12:31 → MEDSURG 13:11 → CSU 13:35
PROVIDERS: Physician Assistant; Admitting Provider Internal Medicine; Emergency Provider Family Medicine; Visit Provider Internal Medicine
DX: I63.81 Other cerebral infarction due to occlusion or stenosis of small artery (principal); J98.59 Other diseases of mediastinum, not elsewhere classified; G81.94 Hemiplegia, unspecified affecting left nondominant side; I50.20 Unspecified systolic (congestive) heart failure; I47.20 Ventricular tachycardia, unspecified; I42.9 Cardiomyopathy, unspecified; N17.9 Acute kidney failure, unspecified; R29.810 Facial weakness; R47.81 Slurred speech; R29.706 NIHSS score 6; F17.200 Nicotine dependence, unspecified, uncomplicated; F32.A Depression, unspecified; F12.90 Cannabis use, unspecified, uncomplicated; I11.0 Hypertensive heart disease with heart failure; F41.9 Anxiety disorder, unspecified; G89.29 Other chronic pain; M54.9 Dorsalgia, unspecified; Z82.49 Family history of ischemic heart disease and other diseases of the circulatory system; E78.5 Hyperlipidemia, unspecified; E87.6 Hypokalemia
CPT/HCPCS: 36415; 70450; 70496; 70498; 71275; 80048; 80053; 80061; 80306; 81003; 82105; 83036; 83615; 83735; 84443; 84484; 84702; 85025; 85610; 85730; 92523; 92610; 93005; 93306; 93312; 93320; 93325; 96372; 96374; 96375; 96376; 97110; 97116; 97161; 97165; 99285; J0360; J1650; J2060; J2704; J3490; Q9967

== ENCOUNTER → 2023-05-16 11:34 | Outpatient (BNVA) | payer MEDICAID, SELFPAY | PROVIDERS: Visit Provider Nurse Practitioner | DX: R10.13 Epigastric pain (principal); K21.9 Gastro-esophageal reflux disease without esophagitis; R07.9 Chest pain, unspecified | CPT/HCPCS: 93005 ==

== ENCOUNTER → 2024-01-26 08:55 | Outpatient (BNVA) | payer MEDICAID, SELFPAY | PROVIDERS: Visit Provider Family Medicine | DX: E78.5 Hyperlipidemia, unspecified (principal); I48.91 Unspecified atrial fibrillation; I42.9 Cardiomyopathy, unspecified | CPT/HCPCS: 80053; 80061; 84439; 84443; 85025; 93005 ==

== ENCOUNTER 2024-02-16 13:21 | Outpatient (CLI) | payer MEDICAID, SELFPAY ==
--- NOTE | 2024-02-16 13:30 | CTR_ITS ---
PROCEDURE INFORMATION: Exam: CT Chest With Contrast; Diagnostic Exam date and time: 02/16/2024 2:34 PM Age: 53 years old Clinical indication: Condition or disease; Other: Mediastinal mass; Additional info: Mediastinal mass. Possible teratoma TECHNIQUE: Imaging protocol: Diagnostic computed tomography of the chest with contrast. Radiation optimization: All CT scans at this facility use at least one of these dose optimization techniques: automated exposure control; mA and/or kV adjustment per patient size (includes targeted exams where dose is matched to clinical indication); or iterative reconstruction. Contrast material: OMNI 350; Contrast volume: 100 ml; Contrast route: INTRAVENOUS (IV); COMPARISON: CT angio chest PE protcl [id number] 06/06/2022 4:49 PM RADIATION DOSE METRICS: Total DLP (mGy-cm): 505.91 FINDINGS: Thyroid: There is a subcentimeter right thyroid nodule without suspicious features. No follow-up imaging is necessary. Lungs: Mild paraseptal emphysema in the upper lungs. There is no consolidation. Pleural spaces: There is no pleural effusion or pneumothorax. Heart: Mild asymmetric enlargement of the left ventricle. There is no pericardial effusion. Mediastinal space: There is a mixed density mass in the anterior upper mediastinum measuring 7.1 x 5.3 cm axial and 6.6 cm craniocaudal dimension. The mass demonstrates fat, fluid, calcified and soft tissue components consistent with a mature teratoma. The mass is stable since 06/06/2022. Lymph nodes: There are multiple small lower mediastinal and bilateral hilar lymph nodes which are nonspecific. No gross mediastinal lymphadenopathy. Vasculature: The aorta is unremarkable. There is no aneurysm. Visible portions of the pulmonary arteries are unremarkable. Liver: There are subcentimeter hypodense hepatic nodules which are too small to fully characterize on this exam. Bones/joints: Bones are unremarkable. Soft tissues: The extrathoracic soft tissues are unremarkable. CT/CT chest w con* [id number] IMPRESSION: 1. Stable anterior upper mediastinal teratoma since 06/06/2022. 2. Subcentimeter liver nodules, too small to fully characterize. In a low-risk patient, this is most likely to be benign and no further follow-up is recommended. In a high-risk patient, follow-up MRI in 3-6 months is recommended (or earlier if warranted by the patient's specific clinical circumstances). (Reference: Bubba) COMMENTS: The presence of pulmonary emphysema on CT is an independent risk factor for lung cancer. In the absence of a history or active diagnosis of lung cancer, it is recommended that this patient with emphysema be evaluated for enrollment in a low dose CT lung cancer screening program. REFERENCES: Bubba RODRIGUEZ, et al. Management of Incidental Liver Lesions on CT: A White Paper of the ACR Incidental Findings Committee. J Am Nikolas Radiol. 2017;14(11):9223-9202.
[2024-02-16] MEDS: iohexol 350 mg/mL 500 mL Btl (per mL) IV (14:58)
== END 2024-02-16 13:22 | disposition home or self-care (01) ==
LOC: RAD 13:22
PROVIDERS: PCP Family Medicine; Visit Provider Family Medicine
DX: J98.59 Other diseases of mediastinum, not elsewhere classified (principal); K76.89 Other specified diseases of liver; J43.8 Other emphysema; E04.1 Nontoxic single thyroid nodule; I51.7 Cardiomegaly; R59.0 Localized enlarged lymph nodes
CPT/HCPCS: 71260

== ENCOUNTER 2024-03-22 06:46 | Outpatient (CLI) | payer MEDICAID, SELFPAY ==
--- NOTE | 2024-03-22 06:55 | USCV_ITS ---
Vik Jones Age: 53 Gender: M : 1970 Exam Date: 03/22/2024 07:19 Ordering Phys: Miguelito Jordan MD Technologist: Otis August Exam Location: [facility] – [place] Indication: cardiomyopathy BP: 122 / 80 HR: 90 Rhythm: Sinus Technical Quality: Adequate MEASUREMENTS (Male / Female) Normal Values 2D ECHO LV Diastolic Diameter PLAX 6.7 cm 4.2 - 5.9 / 3.9 - 5.3 cm IVS Diastolic Thickness 1.3 cm 0.6 - 1.0 / 0.6 - 0.9 cm IVS Systolic Thickness 1.4 cm LVPW Diastolic Thickness 1.6 cm 0.6 - 1.0 / 0.6 - 0.9 cm LVPW Systolic Thickness 2.1 cm LVOT Diameter 2.1 cm LV Ejection Fraction 2D Teich 36.2 % LV Ejection Fraction MOD 4C 30.2 % LV Ejection Fraction MOD 2C 32.9 % LV Ejection Fraction 2C AL 32.5 % LA Diameter 3.6 cm RA Systolic Volume 4C AL 44.7 ml RA Systolic Volume 4C MOD 43.0 ml LA Sys Volume AL 42.2 cm cubed LA Sys Volume Index AL 18.5 cm cubed/m squared Aorta at Sinotubular Diameter 2.3 cm IVC Diameter 1.6 cm M-MODE LA Ao Ratio MM 0.9 AV Cusp Separation MM 1.1 cm DOPPLER AV Peak Velocity 144.8 cm/s LVOT Peak Velocity 64.0 cm/s AV Area Cont Eq vti 1.5 cm squared AV Area Cont Eq pk 1.6 cm squared MV Peak Velocity 106.0 cm/s MV Area PHT 5.9 cm squared Mitral E to A Ratio 0.8 TV Peak Velocity 174.0 cm/s TR Peak Velocity 195.0 cm/s TR Peak Gradient 15.2 mmHg TR Mean Velocity 153.0 cm/s TR Mean Gradient 10.1 mmHg TR Velocity Time Integral 60.0 cm PV Peak Velocity 131.0 cm/s RV Ejection Time 0.3 s FINDINGS Left Ventricle Moderately increased left ventricular cavity size. Severely decreased left ventricular systolic function. Left ventricular ejection fraction is estimated at 30 %. Grade I/IV diastolic dysfunction (abnormal relaxation filling pattern), normal to mildly elevated filling pressures. Right Ventricle The right ventricle is normal in size and function. Right Atrium The right atrium is normal in size. Left Atrium The left atrium is normal in size. Mitral Valve Moderately thickened mitral valve. Moderate mitral annular calcification. No mitral valve stenosis. Trace mitral valve regurgitation. Aortic Valve Moderate aortic valve calcification. Mild aortic valve stenosis, mean gradient 5.4 mmHg, SURJIT 1.5 cm squared. Trace aortic valve regurgitation. Tricuspid Valve Structurally normal tricuspid valve without significant stenosis or regurgitation. Pulmonic Valve Structurally normal pulmonic valve without significant stenosis. There is no pulmonic regurgitation. Pericardium Normal pericardium without effusion. Aorta Normal ascending aorta dimension. IVC The inferior vena cava appears normal. CONCLUSIONS Moderately increased left ventricular cavity size. Severely decreased left ventricular systolic function. Left ventricular ejection fraction is estimated at 30 %. Grade I/IV diastolic dysfunction (abnormal relaxation filling pattern), normal to mildly elevated filling pressures. Moderate aortic valve calcification. Mild aortic valve stenosis, mean gradient 5.4 mmHg, SURJIT 1.5 cm squared. Trace aortic valve regurgitation. Moderately thickened mitral valve. Moderate mitral annular calcification. No mitral valve stenosis. Trace mitral valve regurgitation. There is no pericardial effusion. Right atrial pressure is around 5 mm of mercury. Vignesh Trinh MD (Electronically Signed) Final Date: 22 March 2024 22:23 S
== END 2024-03-22 06:47 | disposition home or self-care (01) ==
LOC: RAD 06:47
PROVIDERS: PCP Family Medicine; Visit Provider Family Medicine
DX: I42.9 Cardiomyopathy, unspecified (principal); I51.7 Cardiomegaly; R93.1 Abnormal findings on diagnostic imaging of heart and coronary circulation; I70.0 Atherosclerosis of aorta; I34.81 Nonrheumatic mitral (valve) annulus calcification; I35.0 Nonrheumatic aortic (valve) stenosis
CPT/HCPCS: 93306

== ENCOUNTER 2024-04-24 08:20 | Outpatient (CLI) | payer MEDICAID, SELFPAY ==
[2024-04-23 12:19] VITALS: BP 141/98; PULSE 95; RESP 19; O2SAT 97
[2024-04-24] MEDS: diphenhydrAMINE 50 mg Capsule PO (09:00)
[2024-04-24 09:05] LABS: Basophils # 0.1 10^3/uL (0.0-0.1); Basophils % 0.8 %; Eosinophils # 0.2 10^3/uL (0.0-0.8); Hematocrit 48.3 % (37-53); Lymphocytes # 1.4 10^3/uL (0.8-4.8); Lymphocytes % 23.9 %; Mean Corpuscular HGB Conc 33.1 g/dL (30-55); Mean Corpuscular Hemoglobin 29.2 pg (27-33); Mean Corpuscular Volume 88.1 fl (82-101); Mean Platelet Volume 10.2 fL (7.4-10.4); Monocytes # 0.6 10^3/uL (0.2-0.9); Monocytes % 9.9 %; Neutrophils # 3.69 10^3/uL (1.8-7.7); Neutrophils % 62.1 %; Nucleated Red Blood Cells % 0 %; Platelet Count 227 10^3/cmm (157-399); Red Blood Count 5.48 10^6/uL (3.85-5.65); Red Cell Distribution Width 13.7 % (12.1-15.1); White Blood Count 5.95 10^3/uL (3.29-11.43)
[2024-04-24 09:07] VITALS: BP 167/100; PULSE 92; RESP 20; TEMP 36.6; O2SAT 98; BMI 27.6
[2024-04-24 09:56] LABS: Blood Urea Nitrogen 16 mg/dL (6-20); Calcium 9.1 mg/dL (8.5-10.5); Carbon Dioxide 26 mmol/L (22-29); Chloride 98 mmol/L (98-107); Glomerular Filtration Rate 48.6 mL/min (90-130); Glucose 84 mg/dL (65-115); Osmolality Calculated 284 mOsm/kg (285-295); Sodium 137 mmol/L (136-145)
--- NOTE | 2024-04-24 10:00 | XACV_ITS ---
Exam Room: 2 Ht: 188 cm Wt: 7 kg BSA: 0.54 m2 Gender: Male : 1970 Any Known Allergies: No known allergies Exam Priority: Routine Procedure(s): Procedure Description: Diagnostic procedure Procedure Description: Left Heart Catheterization Procedure Description: Right Heart Catheterization Procedure Description: O2 saturation Procedure Description: Coronary Angiography Diagnostic Cath Status: Elective Diagnostic Findings * No significant disease noted in left main, LAD, Left circumflex artery and RCA. * Coronary angiography shows right dominance. Conclusions 1. Normal right and left sided cardiac pressures. Mild pre-capillary pulmonary hypertension. 2. Non-ischemic cardiomyopathy. Patent coronary arteries. Recommendations * Aggressive guideline directed heart failure therapy. * Outpatient cardiology follow up in 2 weeks. Interventional RX Recommendation: medical therapy and/or counseling Diagnostic RX Recommendation: medical therapy and/or counseling Anticoagulation: Heparin Pressures Phase:Rest AO : 131 / 107 ( 120 ) @ 12:31:00 PM 147 / 99 ( 121 ) @ 12:34:00 PM 146 / 100 ( 121 ) @ 12:34:00 PM LV : 141 / 4 / 17 @ 12:34:00 PM 149 / -10 / 10 @ 12:34:00 PM RV : 38 / 5 / 12 @ 12:21:00 PM PA : 39 / 13 ( 24 ) @ 12:20:00 PM RA : a wave = 12 v wave = 9 mean = 8 @ 12:21:00 PM PCW : a wave = 16 v wave = 15 mean = 13 @ :19:00 PM O2 Content Phase:Rest PA : O2 Content O2: 70.5 @ 12:34:00 PM Saturations Phase:Rest AO : 97 @ 12:31:00 PM PA : 71 @ 12:34:00 PM Cardiac Output Phase:Rest Jb : 2 @ 1:01:05 PM Jb Cardiac Index: 2 @ 1:01:05 PM Flow Phase:Rest Qp : 2 @ 1:01:05 PM Qs : 2 @ 1:01:05 PM Valves Phase:DefaultPhase AV : 2.0 @ 1:01:05 PM 2.0 @ 1:01:05 PM AV Mean Gradient: 11.0 @ 1:01:05 PM 11.0 @ 1:01:05 PM AV Flow: 104 @ 1:01:05 PM AV Area: 0.7 @ 1:01:05 PM AV Area Index: 0.99 @ 1:01:05 PM Clinical Evaluation EBL: 5mL-10mL Procedural Details Procedure Consent Obtained. Pre-Procedure Time Out. Identified patient by full name and date of as verbalized by the patient/guarantor. Identified patient by full name and date of as verbalized by the patient/guarantor. Does the consent match the physician's order: Yes. Accurate & Complete Informed Consent: Yes. Inpatient/Outpatient History & Physical on Chart: Yes. If H&P is completed, is and addenduem needed: No. Visualize and Verify Site with Patient/Guarantor: N/A. Relevant Radiology Images available: Yes. The risks, benefits, and alternatives of sedation and/or procedure were discussed by physician. The patient agrees to continue. Procedure started. 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 Chest Pain Symptom Assessment: Atypical Angina. Cardiovascular Instability: No. Correct patient, site and procedure confirmed by cath team. PERRLA. Strong, equal hand dispensing optician bilaterally. Lungs clear x 5 lobes. IV Site on Arrival: 20 gauge in the right anticubital for RHC. IV Site on Arrival: 20 gauge in the left anticubital. IV Fluids: 0.9% NaCl at KVO. 0 mL infused prior to microbiology lab technician. Pre Procedural Pulses: bilateral dorsalis pedis was Doppled. Pre Procedural Pulses: bilateral posterior tibial was Doppled. Pre Procedural Pulses: bilateral radial was 1+. Patient on Room Air for RHC. right radial was prepped with chloroprep then draped in the usual sterile fashion. right brachial was prepped with chloroprep then draped in the usual sterile fashion. right groin was prepped with chloroprep then draped in the usual sterile fashion. Physician notified. Baseline sample Acquired. HR: 80 BPM. Patient's family in CPRU room #3. Dr. Valderrama will update at the completion of the procedure. Equipment: 6F - Radial. Cardiac Cath Pack. ACIST Manifold Kit Model BT 2000. Heparinized Saline (2 units/mL), 1000 mL bag. Physician arrived. Physician scrubbed in. Immediate Pre-Procedure Time Out. Correct Patient: Yes; Correct Procedure: Yes; Correct Site: Yes; Correct Patient Position: Yes; Correct Supplies: Yes; Dried Flammable Prep: Yes; Blood Products Available: N/A;. Micropuncture Wire in through the existing 20g IV in the right brachial vein. Lidocaine 1% infiltrated to the right brachial. [place] MON catheter inserted. [place] guidewire in through the swan. Oximetry samples were obtained. Normal venous range: 60-85%. Normal arterial range: 95-100%. Pressure measurements obtained. ABG drawn and sent with respiratory therapy. [place]Ram[place]rez out. Lidocaine 1% infiltrated to the right radial. Arterial access obtained. A 5 guyanese TIG catheter in over the exchange J wire. Oxygen started at 2liters/min via nasal canula. Multiple views taken of left coronary artery. Catheter redirected to the RCA. Multiple views taken of right coronary artery. Catheter redirected to the LV. EDP Sample taken: LV 141/4,17; HR: 72 BPM; SpO2: 100%. Pullback taken: LV 149/-11,10; AO 147/99(121); Mean: 11mmHg, Peak to Peak: 2mmHg, SEP: 15sec/min; HR: 76 BPM; SpO2: 100%. Catheter removed over the exchange J wire. Physician scrubbed out. A Manual Compression was successful obtaining hemostatsis at the Right Brachial Vein insertion site. A TR Band was successful obtaining hemostatsis at the Right Radial artery insertion site. Post Procedure: Pulses reassessed and unchanged. PERRLA. Strong, equal hand dispensing optician bilaterally. No VTE prophylaxis required. Medication's Wasted: Lidocaine 1% = 18 mL. Medication's Wasted: Nitro = 49.7 mg. Medication's Wasted: Heparin = 1000 units. Medication's Wasted: Other = Versed 1 mg. Medication's Wasted: Other = Fentanyl 75 mcg. Total IV fluids: 300 mL. 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 Complications: none. Estimated blood loss: 5mL-10mL. Responsiveness - Normal response to verbal stimuli; alert and oriented, PERRLA. Airway - Unaffected, no intervention required; spontaneous ventilation. Circulation: W/N/L, pulses unchanged. Nausea/Vomiting: No. Procedure completed. Patient transferred by bed to 1st floor. Vital chart was stopped. Access Site Site: Right Brachial Vein Sheath Size: 6 Fr Hemostasis Method: Manual Compression Hemostasis Success: Successful Site: Right Radial artery Sheath Size: 6 Fr Hemostasis Method: TR Band Hemostasis Success: Successful Procedure Medications Start: 12:01 PM Stop: 12:01 PM Medication: 0.9% Saline Amount: 250 ml Route: I.V. bolus Start: 12:06 PM Stop: 12:06 PM Medication: Versed Amount: 1 mg Route: I.V. Start: 12:26 PM Stop: 12:26 PM Medication: Nitrogylcerin Amount: 300 mcg Route: I.A. Start: 12:28 PM Stop: 12:28 PM Medication: Heparin Amount: 5000 units Route: I.V. Start: 12:29 PM Stop: 12:29 PM Medication: Fentanyl Amount: 25 mcg Route: I.V. I, the attending physician, have reviewed and verified all procedure medications. Yes, all medications given per verbal order History/Risk Factors Hypertension: Yes Dyslipidemia: Yes Peripheral Arterial Disease (PAD): No Myocardial Infarction (CA): No Obesity: No Renal Disease: No Tobacco Use: Current/Recent(w/in 1 year) Prior Interventions PCI: No CABG: No Valve Surgery: No Report Signatures Finalized by Matt Valderrama MD on 05/08/2024 11:17 AM
--- NOTE | 2024-04-24 12:10 | W.PM.OPSUD ---
Surgery/Procedure H&P Update DATE OF PROCEDURE: April 24, 2024 DATE H&P PERFORMED: 04/11/24 PREOP DIAGNOSIS: LV dysfunction PRIMARY INDICATION FOR PROCEDURE: LV dysfunction PLANNED PROCEDURE: Operation Date: 04/24/24 10:00 Proposed Procedures p Cardiac Catheterization - RLHC w/wo LV & Deandra(Bilateral) - Matt Valderrama M.D Possible intervention PATIENT REASSESSED PRIOR TO SEDATION, WITH NO CHANGE NOTED: Yes PHYSICAL EXAM: alert, oriented x 3, clear to auscultation bilaterally and regular rate & rhythm AIRWAY EVAL/ANESTHESIA PLAN: normal airway, ASA III, Local Anesthesia, Risks, benefits & alternatives of sedation and/or procedure discussed and Patient agrees to continue as planned ADDITIONAL INFORMATION: Moderate sedation
--- NOTE | 2024-04-24 12:37 | PM.PROC ---
Procedure Note: Date of procedure: 04/24/24 Pre-procedure diagnosis: LV dysfunction Post-procedure diagnosis: other (Non-ischemic cardiomyopathy) Procedure: Patent coronary arteries. Non-ischemic cardiomyopathy. Guideline directed heart failure therapy Performing Provider: Matt Valderrama Estimated blood loss (mL): 5 Complications: None Condition: stable Disposition: floor Coding Level of Care Code Acute Code for [facility] Fwd
[2024-04-24 12:53] LABS: Alveolar-Arterial Oxygen Gradi 7.5 mmHg (5-10); Arterial Blood Gas Hematocrit 45.8 % (42-52); Blood Gas Operator Identificat glc; Blood Gas Sample Site Not specified; Carboxyhemoglobin 1.7 %THgb (0.4-20.1); HGB O2 Sat 68.6 % (95-100); Methemoglobin 0.9 % (0.4-1.5)
[2024-04-24 12:56] LABS: Arterial Blood Gas Hematocrit 46.6 % (42-52); Blood Gas Operator Identificat glc; Blood Gas Sample Site Not specified; Blood Gas Sample Type Not specified; Carboxyhemoglobin 1.5 %THgb (0.4-20.1); HGB O2 Sat 94.8 % (95-100); Total Hemoglobin 15.2 g/dL (14-18)
[2024-04-24 12:57] LABS: Blood Gas Sample Type Not specified
[2024-04-24 13:23] VITALS: BP 141/98; PULSE 95; RESP 19; O2SAT 97
--- NOTE | 2024-04-24 16:22 | PC.NURSE ---
This person was unable to obtain d/c appointments due to inclement weather.
== END 2024-04-24 17:17 | disposition home or self-care (01) ==
LOC: CCL 08:23 → CSU 13:14
PROVIDERS: PCP Family Medicine; Visit Provider Internal Medicine
DX: I50.1 Left ventricular failure, unspecified (principal); I27.20 Pulmonary hypertension, unspecified; I42.8 Other cardiomyopathies; E78.5 Hyperlipidemia, unspecified; Z79.82 Long term (current) use of aspirin; I11.0 Hypertensive heart disease with heart failure; I50.20 Unspecified systolic (congestive) heart failure
CPT/HCPCS: 36415; 80048; 82810; 85025; 93460; 96374; 99152; 99153; C1751; C1769; C1887; C1894; J1644; J2250; J3010; J3490; J7030; Q0163; Q9967

== ENCOUNTER → 2024-05-08 16:00 | Outpatient (BNVA) | payer MEDICAID, SELFPAY | PROVIDERS: PCP Family Medicine; Visit Provider Nurse Practitioner Family | DX: I10 Essential (primary) hypertension (principal) | CPT/HCPCS: 36415; 80048; 85025 ==